=== PATIENT | male | born 1955 | race Caucasian/White ===

== ENCOUNTER 2017-07-18 11:16 | Emergency (ER) | payer BC ==
--- NOTE | 2017-07-18 12:42 | EDM.PDOC ---
ED HPI GENERAL MEDICAL PROBLEM - General Chief Complaint: General Stated Complaint: NUMBNESS IN FACE & ARM Time Seen by Provider: 07/18/17 12:00 Source of Information: Reports: Patient, Family History Limitations: Reports: No Limitations - History of Present Illness INITIAL COMMENTS - FREE TEXT/NARRATIVE: 61-year-old male with an aortic valve replacement history, previous TIAs who is his normal baseline last evening at midnight, woke up this morning at 10:00 and despite having no problem with ambulation realized he had paresthesias of his left face, left arm, and felt it was difficult to close his left eye. His family also thinks he has very slight dysarthria. He has no headache, visual complaints, nausea or vomiting, shortness of breath or chest pain. He is in a normal sinus rhythm. Glucose levels have been stable. Onset: Unknown/Unsure (Symptoms started sometime after midnight) Severity: Moderate Associated Symptoms: Denies: Confusion, Chest Pain, Cough, Fever/Chills, Headaches, Nausea/Vomiting, Shortness of Breath - Related Data Allergies Allergy/AdvReac Type Severity Reaction Status Date / Time No Known Allergies Allergy Verified 07/18/17 11:56 Home Meds: Home Meds Aspirin [Halfprin] 1 tab PO BEDTIME 07/18/17 [History] Fluticasone/Salmeterol [Advair 250-50 Diskus] 1 puff INH DAILY 07/18/17 [History ] Insulin Aspart [Novolog Flexpen] 1 unit SUBCUT ASDIRECTED 07/18/17 [History] Insulin Glarg,Human.Rec.Analog [Lantus Solostar] 40 unit SUBCUT DAILY 07/18/17 [ History] Lisinopril 1 tab PO DAILY 07/18/17 [History] Metoprolol Succinate [Toprol XL] 1 tab PO DAILY 07/18/17 [History] Montelukast [Singulair] 1 tab PO DAILY 07/18/17 [History] Ondansetron [Zofran ODT] 1 tab PO Q4H PRN 07/18/17 [History] Warfarin [Coumadin] 1 tab PO ASDIRECTED 07/18/17 [History] Warfarin [Coumadin] 15 mg PO ASDIRECTED 07/18/17 [History] atorvaSTATin Calcium [Atorvastatin Calcium] 1 tab PO DAILY 07/18/17 [History] Past Medical History HEENT History: Reports: Hard of Hearing, Impaired Vision Cardiovascular History: Reports: Hypertension Respiratory History: Reports: Asthma, Sleep Apnea, Other (See Below) Other Respiratory History: uses cpap Musculoskeletal History: Reports: Fracture Neurological History: Reports: TIA Endocrine/Metabolic History: Reports: Diabetes, Type I, Other (See Below) Other Endocrine/Metabolic History: Diabetic since 1981 Hematologic History: Reports: Anticoagulation Therapy - Past Surgical History HEENT Surgical History: Reports: Tonsillectomy Cardiovascular Surgical History: Reports: Valve Replacement, Other (See Below) Other Cardiovascular Surgeries/Procedures: aortic valve replacement GI Surgical History: Reports: Appendectomy Social & Family History - Tobacco Use Smoking Status *Q: Never Smoker - Alcohol Use Days Per Week of Alcohol Use: 2 Number of Drinks Per Day: 1 Total Drinks Per Week: 2 - Recreational Drug Use Recreational Drug Use: No ED ROS GENERAL - Review of Systems Review Of Systems: See Below Constitutional: Denies: Fever, Chills, Malaise HEENT: Reports: Other (Numbness of the left face, weakness of the osmani-orbital area and slight dysarthria) Respiratory: Denies: Shortness of Breath Cardiovascular: Denies: Chest Pain GI/Abdominal: Denies: Abdominal Pain Skin: Reports: No Symptoms Neurological: Reports: Paresthesia (face and left arm) Psychiatric: Reports: No Symptoms ED EXAM, GENERAL - Physical Exam Exam: See Below Exam Limited By: No Limitations General Appearance: Alert, No Apparent Distress Eye Exam: Bilateral Eye: EOMI, PERRL Head: Atraumatic Neck: Normal Inspection. No: Carotid Bruit Respiratory/Chest: No Respiratory Distress, Lungs Clear Cardiovascular: Regular Rate, Rhythm, Other (Valvular click is heard.) Neurological: Alert, Oriented, Other (Slight reproducible sensation deficit of the left face and extensor surface of the left arm. Grasp strength seems equal, lower extremity strength is equal. Patient however had noticeable lack of coordination with his left arm placing his right hearing aid in, he is normally left-handed) Skin Exam: Warm, Dry Course - Vital Signs Last Recorded V/S: Last Vital Signs Temp 97.4 F 07/18/17 11:52 Pulse 62 07/18/17 13:45 Resp 10 L 07/18/17 13:45 BP 148/73 H 07/18/17 13:45 Pulse Ox 95 07/18/17 13:45 - Orders/Labs/Meds Orders: Active Orders 24 hr Category Date Time Status Head wo Cont [CT] Stat Exams 07/18/17 12:19 Taken Labs: Laboratory Tests 07/18/17 07/18/17 07/18/17 Range/Units 12:29 12:29 12:29 WBC 6.3 (4.5-11.0) K/uL RBC 4.40 (4.30-5.90) M/uL Hgb 12.5 (12.0-15.0) g/dL Hct 38.5 L (40.0-54.0) % MCV 88 (80-98) fL MCH 28 (27-31) pg MCHC 33 (32-36) % Plt Count 222 (150-400) K/uL Neut % (Auto) 49 (36-66) % Lymph % (Auto) 40 (24-44) % [place] % (Auto) 9 H (2-6) % Eos % (Auto) 2 (2-4) % Baso % (Auto) 1 (0-1) % PT 34.8 H (9.5-12.0) sec INR 3.10 H (0.80-1.20) Sodium 145 (140-148) mmol/L Potassium 4.1 (3.6-5.2) mmol/L Chloride 110 H (100-108) mmol/L Carbon Dioxide 30 (21-32) mmol/L Anion Gap 9.1 (5.0-14.0) mmol/L BUN 14 (7-18) mg/dL Creatinine 0.9 (0.8-1.3) mg/dL Est Cr Clr Drug Dosing 84.44 mL/min Estimated GFR (MDRD) > 60 (>60) Glucose 102 (74-106) mg/dL Calcium 8.6 (8.5-10.1) mg/dL - Radiology Interpretation Free Text/Narrative:: This patient has very concerning symptoms for an insult to the right hemisphere of the brain. His symptoms are not worsening but not improving. A CT scan showed evidence of old infarcts but no acute findings or hemorrhage. His INR is 3.1, the rest of his labs are stable and reassuring. I discussed his condition with neurosurgery and neurology in [place], and they recommended nonemergent transfer for more evaluation. EMS we'll transfer the patient to [place] for additional imaging and evaluation by neurology. - Re-Assessments/Exams Free Text/Narrative Re-Assessment/Exam: 07/18/17 12:42 INR, CBC, BMP and CT scan of the head were obtained. Departure - Departure Time of Disposition: 14:09 Disposition: DC/Tfer to Other 70 Condition: Fair Clinical Impression: CVA, Cerebrovascular accident - Discharge Information Referrals: PCP,None [Primary Care Provider] - Forms: ED Department Discharge Care Plan Goals: Patient is to be transported to [facility] for further evaluation of stroke symptoms. - My Orders Last 24 Hours: My Active Orders 07/18/17 12:19 Head wo Cont [CT] Stat - Assessment/Plan Last 24 Hours: My Active Orders 07/18/17 12:19 Head wo Cont [CT] Stat
== END 2017-07-18 14:09 | disposition other institution (70) ==
LOC: JP.ED 11:16
DX: I63.9 Cerebral infarction, unspecified (principal); I10 Essential (primary) hypertension; J45.909 Unspecified asthma, uncomplicated; E10.9 Type 1 diabetes mellitus without complications; Z79.01 Long term (current) use of anticoagulants; Z79.899 Other long term (current) drug therapy; Z79.82 Long term (current) use of aspirin; Z95.4 Presence of other heart-valve replacement
CPT/HCPCS: 36415; 70450; 80048; 85025; 85610; 99285-25

== ENCOUNTER 2019-09-21 05:38 | Inpatient (IN) | payer BC ==
[2019-09-21] MEDS ORDERED: Sodium Chloride 0.9% 10 ML Syringe FLUSH PRN (06:22)
[2019-09-21] MEDS ORDERED: HYDROmorphone 0.5 MG/0.5 ML Syringe IVPUSH ONE ×2 (06:22→07:45)
--- NOTE | 2019-09-21 06:28 | EDM.PDOC ---
<Angel Olivia - Last Filed: 09/21/19 08:17> ED HPI GENERAL MEDICAL PROBLEM - General Chief Complaint: Abdominal Pain Stated Complaint: RIGHT SIDE ABD PAIN Time Seen by Provider: 09/21/19 06:15 Source of Information: Reports: Patient, Family History Limitations: Reports: No Limitations - History of Present Illness INITIAL COMMENTS - FREE TEXT/NARRATIVE: 64 yo male with pHx of appendectomy presents with RLQ abdominal pain that has been constant since about 0200h tonight. He has minimal nausea. No vomiting. Stooling is veronica. No pHx of kidney stones. No hx of this same type of pain. He took 2 Tums without relief. Here with his . Onset: Today Onset Date: 09/21/19 Onset Time: 02:00 Duration: Hour(s):, Constant Location: Reports: Abdomen (RLQ) Quality: Reports: Ache Severity: Moderate Improves with: Reports: None Worsens with: Reports: None Context: Reports: Other (unknown) Associated Symptoms: Reports: No Other Symptoms Treatments [employer]: Reports: Other (see below) (TUMS x 2) Right Lower Abdomen Pain Score (Numeric/FACES): 8 - Related Data Allergies Allergy/AdvReac Type Severity Reaction Status Date / Time No Known Allergies Allergy Verified 09/21/19 05:53 Home Meds: Home Meds Fluticasone/Salmeterol [Advair 250-50 Diskus] 1 puff INH DAILY 07/18/17 [History ] Insulin Aspart [Novolog Flexpen] 1 unit SUBCUT ASDIRECTED 07/18/17 [History] Insulin Glarg,Human.Rec.Analog [Lantus Solostar] 34 unit SUBCUT DAILY 07/18/17 [ History] Lisinopril 1 tab PO DAILY 07/18/17 [History] Metoprolol Succinate [Toprol XL] 1 tab PO DAILY 07/18/17 [History] Montelukast [Singulair] 1 tab PO DAILY 07/18/17 [History] Warfarin [Coumadin] 1 tab PO SUTUTHSA 07/18/17 [History] Warfarin [Coumadin] 15 mg PO MOWEFR 07/18/17 [History] atorvaSTATin Calcium [Atorvastatin Calcium] 1 tab PO DAILY 07/18/17 [History] Phytonadione [Vitamin K] 1 tab PO DAILY 09/21/19 [History] Past Medical History HEENT History: Reports: Hard of Hearing, Impaired Vision Cardiovascular History: Reports: Hypertension Respiratory History: Reports: Asthma, Sleep Apnea, Other (See Below) Other Respiratory History: uses cpap Gastrointestinal History: Reports: None Musculoskeletal History: Reports: Fracture Neurological History: Reports: TIA Endocrine/Metabolic History: Reports: Diabetes, Type I, Other (See Below) Other Endocrine/Metabolic History: Diabetic since 1981 Hematologic History: Reports: Anticoagulation Therapy - Past Surgical History HEENT Surgical History: Reports: Tonsillectomy Cardiovascular Surgical History: Reports: Valve Replacement, Other (See Below) Other Cardiovascular Surgeries/Procedures: aortic valve replacement Respiratory Surgical History: Reports: None GI Surgical History: Reports: Appendectomy Social & Family History - Tobacco Use Smoking Status *Q: Never Smoker - Caffeine Use Caffeine Use: Reports: Soda, Tea - Alcohol Use Days Per Week of Alcohol Use: 1 Number of Drinks Per Day: 3 Total Drinks Per Week: 3 - Recreational Drug Use Recreational Drug Use: No ED ROS GENERAL - Review of Systems Review Of Systems: See Below Constitutional: Reports: No Symptoms HEENT: Reports: No Symptoms Respiratory: Reports: No Symptoms Cardiovascular: Reports: No Symptoms GI/Abdominal: Reports: Abdominal Pain (RLQ), Nausea (minimal) : Reports: No Symptoms Musculoskeletal: Reports: No Symptoms Skin: Reports: No Symptoms Neurological: Reports: No Symptoms Psychiatric: Reports: No Symptoms ED EXAM, GI/ABD - Physical Exam Exam: See Below Exam Limited By: No Limitations General Appearance: Alert, WD/WN, No Apparent Distress Eyes: Bilateral: Normal Appearance Ears: Normal External Exam, Normal Canal, Hearing Loss, Other (hearing aids present) Nose: Normal Inspection, No Blood Throat/Mouth: Normal Inspection, Normal Lips, Normal Oropharynx, Normal Voice, No Airway Compromise Head: Atraumatic, Normocephalic Neck: Normal Inspection Respiratory/Chest: No Respiratory Distress, Lungs Clear, Normal Breath Sounds, No Accessory Muscle Use Cardiovascular: Regular Rate, Rhythm, No Edema GI/Abdominal Exam: Normal Bowel Sounds, Soft, No Distention, Tender (mild RLQ pain with deep palpation). No: Non-Tender, Distended, Guarding, Rigid, Rebound , Hernia Extremities: Normal Inspection, Normal Range of Motion, Non-Tender, No Pedal Edema Neurological: Alert, Oriented, CN II-XII Intact, Normal Cognition, No Motor/ Sensory Deficits Psychiatric: Normal Affect, Normal Mood Skin Exam: Warm, Dry, Intact, Normal Color, No Rash Course - Vital Signs Last Recorded V/S: Last Vital Signs Temp 36.0 C 09/21/19 05:49 Pulse 51 L 09/21/19 05:49 Resp 16 09/21/19 05:49 BP 188/75 H 09/21/19 05:49 Pulse Ox 97 09/21/19 05:49 - Orders/Labs/Meds Orders: Active Orders 24 hr Category Date Time Status Ampicillin/Sulbactam Na [Unasyn] 1.5 gm Med 09/21/19 09:38 Active Sodium Chloride 0.9% [Normal Saline] 50 ml IV ONETIME Aztreonam [Azactam] 1 gm Med 09/21/19 09:41 Active Sodium Chloride 0.9% [Normal Saline] 50 ml IV ONETIME Sodium Chloride 0.9% [Normal Saline] 1,000 ml Med 09/21/19 08:45 Active IV ASDIRECTED Sodium Chloride 0.9% [Normal Saline] 85 ml Med 09/21/19 07:30 Active IV ASDIRECTED Sodium Chloride 0.9% [Saline Flush] Med 09/21/19 06:22 Active 10 ml FLUSH ASDIRECTED PRN Saline Lock Insert [OM.PC] Routine Oth 09/21/19 06:22 Ordered Medication Orders Sodium Chloride (Normal Saline) 85 mls @ 3.5 mls/sec IV ASDIRECTED [facility] Last Admin: 09/21/19 07:49 Dose: 3.5 mls/sec Sodium Chloride (Normal Saline) 1,000 mls @ 999 mls/hr IV ASDIRECTED [facility] Last Admin: 09/21/19 08:49 Dose: 999 mls/hr Ampicillin Sodium/Sulbactam (Sodium 1.5 gm/ Sodium Chloride) 50 mls @ 100 mls/ hr IV ONETIME ONE Stop: 09/21/19 10:07 Aztreonam 1 gm/ Sodium (Chloride) 50 mls @ 100 mls/hr IV ONETIME ONE Stop: 09/21/19 10:10 Sodium Chloride (Saline Flush) 10 ml FLUSH ASDIRECTED PRN PRN Reason: Keep Vein Open Last Admin: 09/21/19 06:35 Dose: 10 ml Labs: Laboratory Tests 0109/21/19 09/21/19 Range/Units 06:23 06:40 06:40 WBC 10.3 (4.5-11.0) K/uL RBC 4.65 (4.30-5.90) M/uL Hgb 13.3 (12.0-15.0) g/dL Hct 40.2 (40.0-54.0) % MCV 87 (80-98) fL MCH 29 (27-31) pg MCHC 33 (32-36) % Plt Count 225 (150-400) K/uL PT (9.5-12.0) sec INR (0.80-1.20) Sodium 141 (140-148) mmol/L Potassium 4.1 (3.6-5.2) mmol/L Chloride 105 (100-108) mmol/L Carbon Dioxide 30 (21-32) mmol/L Anion Gap 6.1 (5.0-14.0) mmol/L BUN 13 (7-18) mg/dL Creatinine 1.1 (0.8-1.3) mg/dL Est Cr Clr Drug Dosing 66.50 mL/min Estimated GFR (MDRD) > 60 (>60) Glucose 202 H (74-106) mg/dL Calcium 8.2 L (8.5-10.1) mg/dL Total Bilirubin (0.2-1.0) mg/dL Direct Bilirubin (0.0-0.2) mg/dL Indirect Bilirubin AST (15-37) U/L ALT (12-78) U/L Alkaline Phosphatase (46-116) U/L C-Reactive Protein 0.64 H (0.0-0.3) mg/dL Total Protein (6.4-8.2) g/dL Albumin (3.4-5.0) g/dL Globulin (2.3-3.5) g/dL Albumin/Globulin Ratio (1.2-2.2) Lipase (73-393) U/L Urine Color Yellow (YELLOW) Urine Appearance Clear (CLEAR) Urine pH 6.5 (5.0-8.0) Ur Specific [place] >= 1.030 (1.008-1.030) Urine Protein >=300 H (NEGATIVE) mg/dL Urine Glucose (UA) 100 H (NEGATIVE) mg/dL Urine Ketones Negative (NEGATIVE) mg/dL Urine Occult Blood Moderate H (NEGATIVE) Urine Nitrite Negative (NEGATIVE) Urine Bilirubin Negative (NEGATIVE) Urine Urobilinogen 0.2 (0.2-1.0) EU/dL Ur Leukocyte Esterase Negative (NEGATIVE) Urine RBC 0-5 (0-5) Urine WBC 0-5 (0-5) Ur Epithelial Cells Few Amorphous Sediment Few Urine Bacteria Few Urine Mucus Not seen 09/21/19 09/21/19 09/21/19 Range/Units 08:19 08:22 08:26 WBC (4.5-11.0) K/uL RBC (4.30-5.90) M/uL Hgb (12.0-15.0) g/dL Hct (40.0-54.0) % MCV (80-98) fL MCH (27-31) pg MCHC (32-36) % Plt Count (150-400) K/uL PT 21.7 H (9.5-12.0) sec INR 2.10 H (0.80-1.20) Sodium (140-148) mmol/L Potassium (3.6-5.2) mmol/L Chloride (100-108) mmol/L Carbon Dioxide (21-32) mmol/L Anion Gap (5.0-14.0) mmol/L BUN (7-18) mg/dL Creatinine (0.8-1.3) mg/dL Est Cr Clr Drug Dosing mL/min Estimated GFR (MDRD) (>60) Glucose (74-106) mg/dL Calcium (8.5-10.1) mg/dL Total Bilirubin 0.5 (0.2-1.0) mg/dL Direct Bilirubin 0.09 (0.0-0.2) mg/dL Indirect Bilirubin TNP AST 28 (15-37) U/L ALT 30 (12-78) U/L Alkaline Phosphatase 89 (46-116) U/L C-Reactive Protein (0.0-0.3) mg/dL Total Protein 6.4 (6.4-8.2) g/dL Albumin 3.1 L (3.4-5.0) g/dL Globulin 3.3 (2.3-3.5) g/dL Albumin/Globulin Ratio 0.9 L (1.2-2.2) Lipase 294 (73-393) U/L Urine Color (YELLOW) Urine Appearance (CLEAR) Urine pH (5.0-8.0) Ur Specific [place] (1.008-1.030) Urine Protein (NEGATIVE) mg/dL Urine Glucose (UA) (NEGATIVE) mg/dL Urine Ketones (NEGATIVE) mg/dL Urine Occult Blood (NEGATIVE) Urine Nitrite (NEGATIVE) Urine Bilirubin (NEGATIVE) Urine Urobilinogen (0.2-1.0) EU/dL Ur Leukocyte Esterase (NEGATIVE) Urine RBC (0-5) Urine WBC (0-5) Ur Epithelial Cells Amorphous Sediment Urine Bacteria Urine Mucus Meds: Medications Generic Name Dose Route Start Last Admin Trade Name Freq PRN Reason Stop Dose Admin Sodium Chloride 85 mls @ 3.5 mls/sec 09/21/19 07:30 09/21/19 07:49 Normal Saline IV 3.5 mls/sec ASDIRECTED YOJANA Administration Sodium Chloride 1,000 mls @ 999 mls/hr 09/21/19 08:45 09/21/19 08:49 Normal Saline IV 999 mls/hr ASDIRECTED YOJANA Administration Ampicillin Sodium/Sulbactam 50 mls @ 100 mls/hr 09/21/19 09:38 Sodium 1.5 gm/ Sodium Chloride IV 09/21/19 10:07 ONETIME ONE Aztreonam 1 gm/ Sodium 50 mls @ 100 mls/hr 09/21/19 09:41 Chloride IV 09/21/19 10:10 ONETIME ONE Sodium Chloride 10 ml 09/21/19 06:22 09/21/19 06:35 Saline Flush FLUSH 10 ml ASDIRECTED PRN Administration Keep Vein Open Discontinued Medications Generic Name Dose Route Start Last Admin Trade Name Freq PRN Reason Stop Dose Admin Hydromorphone HCl 0.5 mg 09/21/19 06:22 09/21/19 06:35 Dilaudid IVPUSH 09/21/19 06:23 0.5 mg ONETIME ONE Administration Hydromorphone HCl 0.5 mg 09/21/19 07:45 09/21/19 07:51 Dilaudid IVPUSH 09/21/19 07:46 0.5 mg ONETIME ONE Administration Lactated Ringer's 1,000 mls @ 1,000 mls/hr 09/21/19 07:02 09/21/19 07:43 Ringers, Lactated IV 09/21/19 08:01 1,000 mls/hr BOLUS ONE Administration Iopamidol 150 ml 09/21/19 07:25 09/21/19 07:49 Isovue-300 (61%) IV 09/21/19 07:26 150 ml ONETIME ONE Administration - Radiology Interpretation Free Text/Narrative:: CT abd/pelvis with IV contrast- IMPRESSION: 1. Cholelithiasis with distended gallbladder and pericholecystic inflammatory changes; rule out acute cholecystitis; if clinically needed, suggest obtaining technetium Choletec hepato jonatan scintigraphy 2. No evidence of biliary duct dilatation. 3. Status post appendectomy. 4. No kidney stones or obstructive uropathy. Please note that all CT scans at this facility use dose modulation, iterative reconstruction, and/or weight-based dosing when appropriate to reduce radiation dose to as low as reasonably achievable. Dictated by Mia Chappell MD @ Sep 21 2019 8:11AM CT Results Date: 09/21/19 CT Results Time: 08:20 Departure - Departure Disposition: Admitted As Inpatient 67 Condition: Fair (c) Clinical Impression: Cholecystitis, Acute cholecystitis, Diabetes mellitus, History of Coumadin therapy - Discharge Information *PRESCRIPTION DRUG MONITORING PROGRAM REVIEWED*: No *COPY OF PRESCRIPTION DRUG MONITORING REPORT IN PATIENT BENNY: No Referrals: PCP,None [Primary Care Provider] - Forms: ED Department Discharge Care Plan Goals: admit to Dr English Sepsis Event Note - Evaluation Sepsis Screening Result: No Definite Risk - Focused Exam Vital Signs: Vital Signs Temp Pulse Resp BP Pulse Ox 09/21/19 05:49 36.0 C 51 L 16 188/75 H 97 Date Exam was Performed: 09/21/19 Time Exam was Performed: 08:17 - My Orders Last 24 Hours: My Active Orders 09/21/19 08:45 Sodium Chloride 0.9% [Normal Saline] 1,000 ml IV ASDIRECTED 09/21/19 09:38 Ampicillin/Sulbactam Na [Unasyn] 1.5 gm Sodium Chloride 0.9% [Normal Saline] 50 ml IV ONETIME 09/21/19 09:41 Aztreonam [Azactam] 1 gm Sodium Chloride 0.9% [Normal Saline] 50 ml IV ONETIME - Assessment/Plan Last 24 Hours: My Active Orders 09/21/19 08:45 Sodium Chloride 0.9% [Normal Saline] 1,000 ml IV ASDIRECTED 09/21/19 09:38 Ampicillin/Sulbactam Na [Unasyn] 1.5 gm Sodium Chloride 0.9% [Normal Saline] 50 ml IV ONETIME 09/21/19 09:41 Aztreonam [Azactam] 1 gm Sodium Chloride 0.9% [Normal Saline] 50 ml IV ONETIME <Janice Shukla - Last Filed: 09/21/19 09:45> Course - Re-Assessments/Exams Free Text/Narrative Re-Assessment/Exam: 09/21/19 09:36 pt was found to have normal liver enzymes and lipase. Dr Bush saw the pt and he wishes to have him admitted and he would plan to do surgery tomorrow. He will be started on antibiotics. 09/21/19 09:44 pt is on coumadin for valvular heart disease Departure - Departure Time of Disposition: 09:42 Sepsis Event Note - Focused Exam Date Exam was Performed: 09/21/19 Time Exam was Performed: 09:44
[2019-09-21] MEDS ORDERED: Lactated Ringers 1,000 ML IV ONE (07:02)
[2019-09-21] MEDS ORDERED: Iopamidol 500 ML BOTTLE IV ONE (07:25)
--- NOTE | 2019-09-21 08:17 | CRLCT ---
INDICATION: Right lower quadrant abdominal pain; status post appendectomy. COMPARISON: None. TECHNIQUE: CT abdomen and pelvis with intravenous contrast; coronal and sagittal reformats. FINDINGS: No abnormal intra pulmonary nodular densities through the lung bases. No evidence of pleural effusion. Normal size cardiac silhouette without any evidence of pericardial effusion. No focal hepatic or splenic pathology. No pancreatic pathology. Cholelithiasis. Mild distention of the gallbladder with minimal pericholecystic inflammatory changes; rule out acute cholecystitis. No evidence of biliary duct dilatation. No adrenal pathology. No kidney stones or obstructive uropathy. No retroperitoneal lymphadenopathy. No evidence of abdominal or pelvic ascites. No pneumoperitoneum or intestinal obstruction. Status post appendectomy. Splenic vein, superior mesenteric vein and the portal vein are unremarkable. IMPRESSION: 1. Cholelithiasis with distended gallbladder and pericholecystic inflammatory changes; rule out acute cholecystitis; if clinically needed, suggest obtaining technetium Choletec hepato jonatan scintigraphy 2. No evidence of biliary duct dilatation. 3. Status post appendectomy. 4. No kidney stones or obstructive uropathy. Please note that all CT scans at this facility use dose modulation, iterative reconstruction, and/or weight-based dosing when appropriate to reduce radiation dose to as low as reasonably achievable. Dictated by Mia Chpapell MD @ Sep 21 2019 8:11AM Signed by Dr. Mia Chappell @ Sep 21 2019 8:16AM
[2019-09-21] MEDS ORDERED: Sodium Chloride 0.9% 1,000 ML IV SCH ×2 (08:45→22:00)
[2019-09-21] MEDS ORDERED: Ampicillin/Sulbactam Na 1.5 GM in Sodium Chloride 0.9% 50 ML IV ONE (09:38)
--- NOTE | 2019-09-21 10:48 | PCM.HP.2 ---
H&P History of Present Illness - General Date of Service: 09/21/19 Admit Problem/Dx: Admission Diagnosis/Problem Admission Diagnosis/Problem Acute cholecystitis due to biliary calculus Source of Information: Patient, Family, Provider History Limitations: Reports: No Limitations - History of Present Illness Initial Comments - Free Text/Narative: CC: My belly hurts HPI: Omer presents to the emergency room this morning with right upper quadrant abdominal pain. He describes a sharp pain that woke him from sleep. The pain is located in the right upper quadrant and radiates throughout the right side of his abdomen. Pain is described as severe but is better after some pain medications. He did try some Tums at home without any relief. Because the pain did not improve and was so severe in nature he decided to seek treatment. He did not have associated nausea or vomiting but did report some diaphoresis. He has not had shortness of breath. No recent difficulties with dyspnea on exertion or chest pain. No prior episodes that were similar. No change in bowel or bladder habits. No measured fevers or shaking chills. He has had previous surgeries and has not had difficulty with anesthesia. His INR has been therapeutic for systemic anticoagulation with his mechanical heart valve. Diabetes has been well controlled. Work-up in the emergency room revealed fairly normal laboratory studies. A CT scan of the abdomen and pelvis revealed evidence for cholelithiasis and probable cholecystitis. Patient will be admitted for surgical management. Right Lower Abdomen Pain Score (Numeric/FACES): 8 - Related Data Allergies/Adverse Reactions: Allergies Allergy/AdvReac Type Severity Reaction Status Date / Time No Known Allergies Allergy Verified 09/21/19 05:53 Home Medications: Home Meds Fluticasone/Salmeterol [Advair 250-50 Diskus] 1 puff INH DAILY 07/18/17 [History ] Insulin Aspart [Novolog Flexpen] 1 unit SUBCUT ASDIRECTED 07/18/17 [History] Insulin Glarg,Human.Rec.Analog [Lantus Solostar] 34 unit SUBCUT DAILY 07/18/17 [ History] Lisinopril 1 tab PO DAILY 07/18/17 [History] Metoprolol Succinate [Toprol XL] 1 tab PO DAILY 07/18/17 [History] Montelukast [Singulair] 1 tab PO DAILY 07/18/17 [History] Warfarin [Coumadin] 1 tab PO SUTUTHSA 07/18/17 [History] Warfarin [Coumadin] 15 mg PO MOWEFR 07/18/17 [History] atorvaSTATin Calcium [Atorvastatin Calcium] 1 tab PO DAILY 07/18/17 [History] Phytonadione [Vitamin K] 1 tab PO DAILY 09/21/19 [History] Past Medical History HEENT History: Reports: Hard of Hearing, Impaired Vision Cardiovascular History: Reports: Hypertension Respiratory History: Reports: Asthma, Sleep Apnea, Other (See Below) Other Respiratory History: uses cpap Gastrointestinal History: Reports: None Musculoskeletal History: Reports: Fracture Neurological History: Reports: TIA Endocrine/Metabolic History: Reports: Diabetes, Type I, Other (See Below) Other Endocrine/Metabolic History: Diabetic since 1981 Hematologic History: Reports: Anticoagulation Therapy - Past Surgical History HEENT Surgical History: Reports: Tonsillectomy Cardiovascular Surgical History: Reports: Valve Replacement, Other (See Below) Other Cardiovascular Surgeries/Procedures: aortic valve replacement Respiratory Surgical History: Reports: None GI Surgical History: Reports: Appendectomy Social & Family History - Family History Cardiac: Reports: CAD (father in early 60's and brother in later 60's) - Tobacco Use Smoking Status *Q: Never Smoker - Caffeine Use Caffeine Use: Reports: Soda, Tea - Alcohol Use Days Per Week of Alcohol Use: 1 Number of Drinks Per Day: 3 Total Drinks Per Week: 3 - Recreational Drug Use Recreational Drug Use: No H&P Review of Systems - Review of Systems: Review Of Systems: See Below Free Text/Narrative: A complete 12 point review of systems was obtained. Pertinent positives and negatives are noted in the history of present illness. All other systems were reviewed and were negative except as noted. Exam - Exam Exam: See Below - Vital Signs Vital Signs: Last Vital Signs Temp 36.3 C 09/21/19 10:41 Pulse 56 L 09/21/19 10:41 Resp 20 09/21/19 10:41 BP 154/61 H 09/21/19 10:41 Pulse Ox 94 L 09/21/19 10:41 Weight: 109.4 kg - Exam Quality Assessment: No: Supplemental Oxygen General: Alert, Oriented, Cooperative. No: Mild Distress HEENT: Conjunctiva Clear, Mucosa Moist & [place]. No: Scleral Icterus Neck: Supple, Trachea Midline. No: Lymphadenopathy Lungs: Clear to Auscultation, Normal Respiratory Effort Cardiovascular: Regular Rate, Regular Rhythm, Other (crisp valve sounds). No: Systolic Murmur GI/Abdominal Exam: Normal Bowel Sounds, Soft, No Distention, Tender (moderate RUQ), Hernia (RLQ). No: Guarding Back Exam: Normal Inspection, Full Range of Motion Extremities: No Pedal Edema. No: Increased Warmth Peripheral Pulses: 2+: Dorsalis Pedis (L), Dorsalis Pedis (R) Skin: Warm, Dry Neuro Extensive - Mental Status: Alert, Oriented x3, Nl Response to Commands Neuro Extensive - Motor, Sensory, Reflexes: No: Dysarthria, Abnormal Motor, Tremor Psychiatric: Alert, Normal Affect - Patient Data Lab Results Last 24 hrs: Laboratory Results - last 24 hr 09/21/19 09/21/19 09/21/19 Range/Units 06:23 06:40 06:40 WBC 10.3 (4.5-11.0) K/uL RBC 4.65 (4.30-5.90) M/uL Hgb 13.3 (12.0-15.0) g/dL Hct 40.2 (40.0-54.0) % MCV 87 (80-98) fL MCH 29 (27-31) pg MCHC 33 (32-36) % Plt Count 225 (150-400) K/uL PT (9.5-12.0) sec INR (0.80-1.20) Sodium 141 (140-148) mmol/L Potassium 4.1 (3.6-5.2) mmol/L Chloride 105 (100-108) mmol/L Carbon Dioxide 30 (21-32) mmol/L Anion Gap 6.1 (5.0-14.0) mmol/L BUN 13 (7-18) mg/dL Creatinine 1.1 (0.8-1.3) mg/dL Est Cr Clr Drug Dosing 66.50 mL/min Estimated GFR (MDRD) > 60 (>60) Glucose 202 H (74-106) mg/dL Calcium 8.2 L (8.5-10.1) mg/dL Total Bilirubin (0.2-1.0) mg/dL Direct Bilirubin (0.0-0.2) mg/dL Indirect Bilirubin AST (15-37) U/L ALT (12-78) U/L Alkaline Phosphatase (46-116) U/L C-Reactive Protein 0.64 H (0.0-0.3) mg/dL Total Protein (6.4-8.2) g/dL Albumin (3.4-5.0) g/dL Globulin (2.3-3.5) g/dL Albumin/Globulin Ratio (1.2-2.2) Lipase (73-393) U/L Urine Color Yellow (YELLOW) Urine Appearance Clear (CLEAR) Urine pH 6.5 (5.0-8.0) Ur Specific [place] >= 1.030 (1.008-1.030) Urine Protein >=300 H (NEGATIVE) mg/dL Urine Glucose (UA) 100 H (NEGATIVE) mg/dL Urine Ketones Negative (NEGATIVE) mg/dL Urine Occult Blood Moderate H (NEGATIVE) Urine Nitrite Negative (NEGATIVE) Urine Bilirubin Negative (NEGATIVE) Urine Urobilinogen 0.2 (0.2-1.0) EU/dL Ur Leukocyte Esterase Negative (NEGATIVE) Urine RBC 0-5 (0-5) Urine WBC 0-5 (0-5) Ur Epithelial Cells Few Amorphous Sediment Few Urine Bacteria Few Urine Mucus Not seen 09/21/19 09/21/19 09/21/19 Range/Units 08:19 08:22 08:26 WBC (4.5-11.0) K/uL RBC (4.30-5.90) M/uL Hgb (12.0-15.0) g/dL Hct (40.0-54.0) % MCV (80-98) fL MCH (27-31) pg MCHC (32-36) % Plt Count (150-400) K/uL PT 21.7 H (9.5-12.0) sec INR 2.10 H (0.80-1.20) Sodium (140-148) mmol/L Potassium (3.6-5.2) mmol/L Chloride (100-108) mmol/L Carbon Dioxide (21-32) mmol/L Anion Gap (5.0-14.0) mmol/L BUN (7-18) mg/dL Creatinine (0.8-1.3) mg/dL Est Cr Clr Drug Dosing mL/min Estimated GFR (MDRD) (>60) Glucose (74-106) mg/dL Calcium (8.5-10.1) mg/dL Total Bilirubin 0.5 (0.2-1.0) mg/dL Direct Bilirubin 0.09 (0.0-0.2) mg/dL Indirect Bilirubin TNP AST 28 (15-37) U/L ALT 30 (12-78) U/L Alkaline Phosphatase 89 (46-116) U/L C-Reactive Protein (0.0-0.3) mg/dL Total Protein 6.4 (6.4-8.2) g/dL Albumin 3.1 L (3.4-5.0) g/dL Globulin 3.3 (2.3-3.5) g/dL Albumin/Globulin Ratio 0.9 L (1.2-2.2) Lipase 294 (73-393) U/L Urine Color (YELLOW) Urine Appearance (CLEAR) Urine pH (5.0-8.0) Ur Specific [place] (1.008-1.030) Urine Protein (NEGATIVE) mg/dL Urine Glucose (UA) (NEGATIVE) mg/dL Urine Ketones (NEGATIVE) mg/dL Urine Occult Blood (NEGATIVE) Urine Nitrite (NEGATIVE) Urine Bilirubin (NEGATIVE) Urine Urobilinogen (0.2-1.0) EU/dL Ur Leukocyte Esterase (NEGATIVE) Urine RBC (0-5) Urine WBC (0-5) Ur Epithelial Cells Amorphous Sediment Urine Bacteria Urine Mucus Result Diagrams: 09/21/19 06:40 09/21/19 06:40 Imaging Impressions Last 24 hrs: CT abd/pelvis - images personally reviewed - there is cholelithiasis with mild thickening of the GB wall c/w with cholecystitis. Biliary tree normal caliber. No other acute findings. Sepsis Event Note - Evaluation Sepsis Screening Result: No Definite Risk - Focused Exam Vital Signs: Vital Signs Temp Pulse Resp BP Pulse Ox 09/21/19 10:41 36.3 C 56 L 20 154/61 H 94 L 09/21/19 05:49 36.0 C 51 L 16 188/75 H 97 Date Exam was Performed: 09/21/19 Time Exam was Performed: 15:51 *Q Meaningful Use (ADM) - VTE *Q VTE Pharmacological Contraindications *Q: Patient Scheduled Surgery - VTE Risk Assess *Q Each Risk Factor Represents 1 Point: Obesity ( BMI > 25 kg/m2) Total Score 1 Point Risk Factors: 1 Each Risk Factor Represents 2 Points: Age 60 - 74 Years, Major surgery greater than 45 minutes Total Score 2 Point Risk Factors: 4 Each Risk Factor Represents 3 Points: None Total Score 3 Point Risk Factors: 0 Each Risk Factor Represents 5 Points: None Total Score 5 Point Risk Factors: 0 Venous Thromboembolism Risk Factor Score *Q: 5 - Problem List (1) Acute cholecystitis due to biliary calculus SNOMED Code(s): 43591148827322 ICD Code: K80.00 - CALCULUS OF GALLBLADDER W ACUTE CHOLECYST W/O OBSTRUCTION Status: Acute Current Visit: Yes (2) Aortic valve replaced Status: Chronic Current Visit: Yes (3) Type I diabetes mellitus SNOMED Code(s): 13188201 ICD Code: E10.9 - TYPE 1 DIABETES MELLITUS WITHOUT COMPLICATIONS Status: Chronic Current Visit: Yes Qualifiers: Diabetes mellitus complication status: without complication Qualified Code( s): E10.9 - Type 1 diabetes mellitus without complications Problem List Initiated/Reviewed/Updated: Yes Orders Last 24hrs: Active Orders 24 hr Category Date Time Status Patient Status Manage Transfer [TRANSFER] Routine ADT 09/21/19 10:34 Ordered Aztreonam [Azactam] 1 gm Med 09/21/19 10:30 Active Sodium Chloride 0.9% [Normal Saline] 50 ml IV ONETIME Sodium Chloride 0.9% [Normal Saline] 1,000 ml Med 09/21/19 08:45 Active IV ASDIRECTED Sodium Chloride 0.9% [Normal Saline] 85 ml Med 09/21/19 07:30 Active IV ASDIRECTED Sodium Chloride 0.9% [Saline Flush] Med 09/21/19 06:22 Active 10 ml FLUSH ASDIRECTED PRN Saline Lock Insert [OM.PC] Routine Oth 09/21/19 06:22 Ordered Resuscitation Status Routine Resus Stat 09/21/19 10:36 Ordered Medication Orders Sodium Chloride (Normal Saline) 85 mls @ 3.5 mls/sec IV ASDIRECTED YOJANA Last Admin: 09/21/19 07:49 Dose: 3.5 mls/sec Sodium Chloride (Normal Saline) 1,000 mls @ 999 mls/hr IV ASDIRECTED YOJANA Last Admin: 09/21/19 08:49 Dose: 999 mls/hr Aztreonam 1 gm/ Sodium (Chloride) 50 mls @ 100 mls/hr IV ONETIME ONE Stop: 09/21/19 10:59 Last Admin: 09/21/19 10:36 Dose: 100 mls/hr Sodium Chloride (Saline Flush) 10 ml FLUSH ASDIRECTED PRN PRN Reason: Keep Vein Open Last Admin: 09/21/19 06:35 Dose: 10 ml Assessment/Plan Comment:: ASSESSMENT AND PLAN - Acute cholecystitis with cholelithiasis-no evidence for biliary duct obstruction at this time and hepatic panel numbers are normal. No evidence for sepsis at this time. Patient has an acceptable functional status. No personal or family history of anesthesia difficulties. He is on warfarin for a mechanical heart valve and will need bridging up until the time of surgery. No obvious contraindications for cholecystectomy. -IV fluids overnight -Antibiotic coverage with Pip/Tazo -Blood cultures if he spikes a fever -Pain control -Surgical consultation for cholecystectomy with Dr. Bush -Anticoagulation management as below Status post mechanical aortic valve replacement-he is chronically anticoagulated with warfarin. Warfarin will need to be reversed. Because of the mechanical valve he will need to be bridged. -Heparin infusion overnight, stop 6 hours prior to surgery which is planned around 1330 tomorrow -1 mg of IV vitamin K today -INR in the morning -Restart warfarin and bridge with enoxaparin after surgery (1 mg/kd Q12H vs 1.5 mg/kg Q24H) Type 1 diabetes mellitus-planning to hold long-acting insulin today and tomorrow. Patient will be covered with mealtime and sliding scale insulin. Maintenance issues - - DVT prophylaxis -heparin infusion overnight - GI prophylaxis -not indicated - Nutrition -consistent carbohydrate today, nothing by mouth after midnight - Atkins catheter -not indicated CODE STATUS -full code Admission justification -this patient will be admitted for inpatient services and is medically appropriate meeting medical necessity for inpatient admission as outlined in my documentation. I reasonably expect the patient will require inpatient services that span a period time over 2 midnights. I reasonably expect this patient to be discharged or transferred within 96 hours [facility]. Disposition -I would anticipate discharge home after the hospital stay Primary care physician -Oli English M.D. - Mortality Measure Prognosis:: Good
[2019-09-21] MEDS ORDERED: Ondansetron 4 MG/2 ML SDV IV PRN (11:15)
[2019-09-21] MEDS ORDERED: Heparin Sodium/D5W 25,000 UNITS/500 ML BAG IV SCH (11:15)
[2019-09-21] MEDS ORDERED: Acetaminophen 325 MG Tab PO PRN (11:15)
[2019-09-21] MEDS ORDERED: Magnesium Hydroxide 400 MG/5 ML Susp 30 ML Cup PO PRN (11:15)
[2019-09-21] MEDS ORDERED: LORazepam 2 MG/ML SDV IVPUSH PRN (11:15)
[2019-09-21] MEDS ORDERED: Ondansetron 4 MG Tab.DIS PO PRN (11:15)
[2019-09-21] MEDS ORDERED: Albuterol 0.083% 2.5 MG/3 ML Neb Soln NEB PRN (11:15)
[2019-09-21] MEDS: HYDROmorphone 1 MG/ML Syringe IVPUSH PRN ×2 (11:56→16:15)
[2019-09-21] MEDS ORDERED: Phytonadione 1 MG in Sodium Chloride 0.9% 50 ML IV ONE (12:00)
[2019-09-21] MEDS ORDERED: Heparin Sodium 5,000 Units/ML Vial IVPUSH ONE (12:00)
[2019-09-21] MEDS: Insulin Lispro 100 Unit/ML 3 ML KwikPen SUBCUT SCH ×5 (12:22→21:04)
[2019-09-21] MEDS: Piperacillin/Tazobactam/Dext 3.375 GM in Premix Bag 1 BAG IV SCH ×2 (16:55→23:27)
[2019-09-21] MEDS: HYDROmorphone 0.5 MG/0.5 ML Syringe IVPUSH PRN ×2 (19:36→21:31)
[2019-09-21] MEDS: oxyCODONE 5 MG Tab PO PRN (19:37)
[2019-09-21] MEDS: Lactobacillus Rhamnosus GG (Probiotic) Cap PO SCH (21:34)
[2019-09-21] MEDS: Fluticasone-Salmeterol 113-14 MCG Powder Inhalant INH SCH (21:36)
[2019-09-22] MEDS: HYDROmorphone 0.5 MG/0.5 ML Syringe IVPUSH PRN ×4 (00:31→23:40)
[2019-09-22] MEDS: Piperacillin/Tazobactam/Dext 3.375 GM in Premix Bag 1 BAG IV SCH ×4 (04:30→21:42)
[2019-09-22] MEDS: Fluticasone-Salmeterol 113-14 MCG Powder Inhalant INH SCH ×2 (07:35→20:24)
[2019-09-22] MEDS ORDERED: Dexamethasone 4 MG/ML SDV ONE (08:34)
[2019-09-22] MEDS ORDERED: Propofol 200 MG/20 ML SDV ONE (08:34)
[2019-09-22] MEDS ORDERED: Succinylcholine 200 MG/10 ML MDV ONE (08:34)
[2019-09-22] MEDS ORDERED: Rocuronium 50 MG/5 ML Vial ONE (08:34)
[2019-09-22] MEDS ORDERED: Glycopyrrolate 0.2 MG/ML 5 ML MDV ONE (08:34)
[2019-09-22] MEDS ORDERED: fentaNYL 250 MCG/5 ML SDV ONE ×2 (08:34→14:22)
[2019-09-22] MEDS ORDERED: Neostigmine Methylsulfate 1 MG/ML 5 ML Syringe ONE (08:34)
[2019-09-22] MEDS ORDERED: Ondansetron 4 MG/2 ML SDV ONE (08:34)
[2019-09-22] MEDS: Insulin Lispro 100 Unit/ML 3 ML KwikPen SUBCUT SCH ×7 (08:42→20:30)
[2019-09-22] MEDS: Metoprolol Succinate 25 MG Tab.ER PO SCH (08:44)
[2019-09-22] MEDS: Lactobacillus Rhamnosus GG (Probiotic) Cap PO SCH ×2 (08:45→20:24)
[2019-09-22] MEDS ORDERED: Dextrose 5%-Lactated Ringers 1,000 ML IV SCH ×2 (08:45→16:30)
[2019-09-22] MEDS: Montelukast 10 MG Tab PO SCH (08:46)
[2019-09-22] MEDS: atorvaSTATin 20 MG Tab PO SCH (08:46)
[2019-09-22] MEDS: Lisinopril 20 MG Tab PO SCH (08:47)
--- NOTE | 2019-09-22 09:48 | PCM.PN ---
- General Info Date of Service: 09/22/19 Subjective Update: There were no acute events overnight following admission. Patient did not have any fevers. He has ongoing abdominal pain which has been fairly well controlled. He has not had any nausea or vomiting. He did require some supplemental oxygen overnight. He is a little bit groggy this morning. Surgery planned later in the afternoon. Bilirubin and white blood cell count are both slightly higher today. Functional Status: Reports: Pain Controlled - Review of Systems General: Denies: Fever Gastrointestinal: Reports: Abdominal Pain - Patient Data Vitals - Most Recent: Last Vital Signs Temp 37.1 C 09/22/19 08:00 Pulse 72 09/22/19 08:00 Resp 18 09/22/19 08:00 BP 166/70 H 09/22/19 08:00 Pulse Ox 93 L 09/22/19 08:00 Weight - Most Recent: 109.4 kg I&O - Last 24 Hours: Intake & Output 09/21/19 09/22/19 09/22/19 22:59 06:59 14:59 Intake Total 480 784 Output Total 250 325 350 Balance 230 459 -350 Lab Results Last 24 Hours: Laboratory Results - last 24 hr 09/21/19 09/21/19 09/22/19 Range/Units 11:15 19:30 02:35 WBC 14.5 H (4.5-11.0) K/uL RBC 4.68 (4.30-5.90) M/uL Hgb 13.4 (12.0-15.0) g/dL Hct 40.3 (40.0-54.0) % MCV 86 (80-98) fL MCH 29 (27-31) pg MCHC 33 (32-36) % Plt Count 214 (150-400) K/uL PT (9.5-12.0) sec INR (0.80-1.20) APTT 34.7 75.2 H (27.0-36.0) sec Sodium (140-148) mmol/L Potassium (3.6-5.2) mmol/L Chloride (100-108) mmol/L Carbon Dioxide (21-32) mmol/L Anion Gap (5.0-14.0) mmol/L BUN (7-18) mg/dL Creatinine (0.8-1.3) mg/dL Est Cr Clr Drug Dosing mL/min Estimated GFR (MDRD) (>60) Glucose (74-106) mg/dL Calcium (8.5-10.1) mg/dL Total Bilirubin (0.2-1.0) mg/dL AST (15-37) U/L ALT (12-78) U/L Alkaline Phosphatase (46-116) U/L Total Protein (6.4-8.2) g/dL Albumin (3.4-5.0) g/dL Globulin (2.3-3.5) g/dL Albumin/Globulin Ratio (1.2-2.2) 09/22/19 09/22/19 09/22/19 Range/Units 02:35 02:35 02:35 WBC (4.5-11.0) K/uL RBC (4.30-5.90) M/uL Hgb (12.0-15.0) g/dL Hct (40.0-54.0) % MCV (80-98) fL MCH (27-31) pg MCHC (32-36) % Plt Count (150-400) K/uL PT 14.7 H (9.5-12.0) sec INR 1.39 H (0.80-1.20) APTT 51.1 H (27.0-36.0) sec Sodium 138 L (140-148) mmol/L Potassium 4.3 (3.6-5.2) mmol/L Chloride 103 (100-108) mmol/L Carbon Dioxide 29 (21-32) mmol/L Anion Gap 10.3 (5.0-14.0) mmol/L BUN 13 (7-18) mg/dL Creatinine 1.1 (0.8-1.3) mg/dL Est Cr Clr Drug Dosing 66.50 mL/min Estimated GFR (MDRD) > 60 (>60) Glucose 227 H (74-106) mg/dL Calcium 8.0 L (8.5-10.1) mg/dL Total Bilirubin 2.0 H D (0.2-1.0) mg/dL AST 20 (15-37) U/L ALT 23 (12-78) U/L Alkaline Phosphatase 89 (46-116) U/L Total Protein 6.1 L (6.4-8.2) g/dL Albumin 2.7 L (3.4-5.0) g/dL Globulin 3.4 (2.3-3.5) g/dL Albumin/Globulin Ratio 0.8 L (1.2-2.2) Med Orders - Current: Current Medications Acetaminophen (Tylenol) 650 mg PO Q4H PRN PRN Reason: Pain (Mild 1-3)/fever Albuterol (Proventil Neb Soln) 2.5 mg NEB Q4H PRN PRN Reason: Shortness Of Breath/wheezing Atorvastatin Calcium (Lipitor) 80 mg PO DAILY [facility] Last Admin: 09/22/19 08:46 Dose: Not Given Ropivacaine 54 ml/Dexamethasone 8 mg/Epinephrine HCl 0.4 mg/ Sodium Chloride 23.6 ml 0 ml NERVRT ASDIRECTED [facility] Hydromorphone HCl (Dilaudid) 0.5 mg IVPUSH Q2H PRN PRN Reason: Pain (severe 7-10) Last Admin: 09/22/19 02:35 Dose: 0.5 mg Piperacillin/Tazobactam/ (Dextrose 3.375 gm/ Premix) 50 mls @ 100 mls/hr IV Q6H [facility] Last Admin: 09/22/19 09:14 Dose: 100 mls/hr Dextrose/Lactated Ringer's (Dextrose 5%-Lactated Ringers) 1,000 mls @ 75 mls/ hr IV ASDIRECTED [facility] Last Admin: 09/22/19 09:01 Dose: 75 mls/hr Insulin Glargine (Lantus Solostar) 34 units SUBCUT DAILY [facility] Insulin Human Lispro (Humalog) 0 unit SUBCUT QIDACANDBED [facility]; Protocol Last Admin: 09/22/19 08:42 Dose: 4 units Insulin Human Lispro (Humalog) 5 unit SUBCUT TIDMEALS [facility] Last Admin: 09/22/19 08:44 Dose: Not Given Lactobacillus Rhamnosus (Culturelle) 1 cap PO BID [facility] Last Admin: 09/22/19 08:45 Dose: Not Given Lisinopril (Prinivil) 20 mg PO DAILY [facility] Last Admin: 09/22/19 08:47 Dose: Not Given Lorazepam (Ativan) 0.5 mg IVPUSH Q4H PRN PRN Reason: Nausea/Vomiting Magnesium Hydroxide (Milk Of Magnesia) 30 ml PO Q12H PRN PRN Reason: Constipation Metoprolol Succinate (Toprol Xl) 25 mg PO DAILY [facility] Last Admin: 09/22/19 08:44 Dose: Not Given Montelukast Sodium (Singulair) 10 mg PO DAILY [facility] Last Admin: 09/22/19 08:46 Dose: Not Given Ondansetron HCl (Zofran Odt) 4 mg PO Q6H PRN PRN Reason: Nausea able to take PO Ondansetron HCl (Zofran) 4 mg IV Q6H PRN PRN Reason: Nausea/Vomiting Last Admin: 09/22/19 00:33 Dose: 4 mg Oxycodone HCl (Oxycodone) 5 - 10 mg PO Q4H PRN PRN Reason: Pain Last Admin: 09/21/19 19:37 Dose: 5 mg Fluticasone/Salmeterol (Fluticasone-Salmeterol 113-14 Mcg Powder Inh) 0 puff INH BIDRT [facility] Last Admin: 09/22/19 07:35 Dose: 1 puff Senna/Docusate Sodium (Senna Plus) 1 tab PO BID PRN PRN Reason: Constipation Sodium Chloride (Saline Flush) 10 ml FLUSH ASDIRECTED PRN PRN Reason: Keep Vein Open Last Admin: 09/21/19 06:35 Dose: 10 ml Discontinued Medications Dexamethasone (Dexamethasone) Confirm Administered Dose 4 mg .ROUTE .STK-MED ONE Stop: 09/22/19 08:35 Fentanyl (Sublimaze) Confirm Administered Dose 250 mcg .ROUTE .STK-MED ONE Stop: 09/22/19 08:35 Glycopyrrolate (Robinul) Confirm Administered Dose 1 mg .ROUTE .STK-MED ONE Stop: 09/22/19 08:35 Heparin Sodium (Porcine) (Heparin Sodium) 5,000 units IVPUSH .BOLUS ONE Stop: 09/21/19 12:01 Last Admin: 09/21/19 13:08 Dose: 5,000 units Hydromorphone HCl (Dilaudid) 0.5 mg IVPUSH ONETIME ONE Stop: 09/21/19 06:23 Last Admin: 09/21/19 06:35 Dose: 0.5 mg Hydromorphone HCl (Dilaudid) 0.5 mg IVPUSH ONETIME ONE Stop: 09/21/19 07:46 Last Admin: 09/21/19 07:51 Dose: 0.5 mg Hydromorphone HCl (Dilaudid) 0.5 mg IVPUSH Q2H PRN PRN Reason: Pain (severe 7-10) Last Admin: 09/21/19 16:15 Dose: 0.5 mg Lactated Ringer's (Ringers, Lactated) 1,000 mls @ 1,000 mls/hr IV BOLUS ONE Stop: 09/21/19 08:01 Last Admin: 09/21/19 07:43 Dose: 1,000 mls/hr Sodium Chloride (Normal Saline) 85 mls @ 3.5 mls/sec IV ASDIRECTED [facility] Last Admin: 09/21/19 07:49 Dose: 3.5 mls/sec Sodium Chloride (Normal Saline) 1,000 mls @ 999 mls/hr IV ASDIRECTED [facility] Last Admin: 09/21/19 08:49 Dose: 999 mls/hr Ampicillin Sodium/Sulbactam (Sodium 1.5 gm/ Sodium Chloride) 50 mls @ 100 mls/ hr IV ONETIME ONE Stop: 09/21/19 10:07 Last Admin: 09/21/19 09:54 Dose: 100 mls/hr Aztreonam 1 gm/ Sodium (Chloride) 50 mls @ 100 mls/hr IV ONETIME ONE Stop: 09/21/19 10:59 Last Admin: 09/21/19 10:36 Dose: 100 mls/hr Heparin Sodium/Dextrose (Heparin 25,000 Units In D5w 500 Ml) 25,000 units in 500 mls @ 39.384 mls/hr IV TITRATE [facility]; Protocol Stop: 09/22/19 07:30 Last Titration: 09/21/19 20:27 Dose: 9.9 units/kg/hr, 21.661 mls/hr Phytonadione 1 mg/ Sodium (Chloride) 50.5 mls @ 100 mls/hr IV ONETIME ONE Stop: 09/21/19 12:30 Last Admin: 09/21/19 12:16 Dose: 100 mls/hr Sodium Chloride (Normal Saline) 1,000 mls @ 75 mls/hr IV ASDIRECTED [facility] Iopamidol (Isovue-300 (61%)) 150 ml IV ONETIME ONE Stop: 09/21/19 07:26 Last Admin: 09/21/19 07:49 Dose: 150 ml Neostigmine Methylsulfate (Neostigmine) Confirm Administered Dose 5 mg .ROUTE .STK-MED ONE Stop: 09/22/19 08:35 Ondansetron HCl (Zofran) Confirm Administered Dose 4 mg .ROUTE .STK-MED ONE Stop: 09/22/19 08:35 Propofol (Diprivan 20 Ml) Confirm Administered Dose 200 mg .ROUTE .STK-MED ONE Stop: 09/22/19 08:35 Rocuronium [place] (Zemuron) Confirm Administered Dose 50 mg .ROUTE .STK-MED ONE Stop: 09/22/19 08:35 Succinylcholine Chloride (Quelicin) Confirm Administered Dose 200 mg .ROUTE .STSphereUp -MED ONE Stop: 09/22/19 08:35 - Exam Quality Assessment: Supplemental Oxygen General: Alert, Oriented, Cooperative, No Acute Distress Lungs: Normal Respiratory Effort Cardiovascular: Regular Rate, Regular Rhythm GI/Abdominal Exam: Soft, No Distention Extremities: No Pedal Edema Psy/Mental Status: Alert, Normal Affect Sepsis Event Note - Evaluation Sepsis Screening Result: No Definite Risk - Focused Exam Vital Signs: Vital Signs Temp Pulse Resp BP Pulse Ox Pulse Ox 09/22/19 08:00 37.1 C 72 18 166/70 H 93 L 09/22/19 07:35 78 95 09/22/19 04:00 36.7 C 74 16 94 L 09/22/19 00:00 36.9 C 20 170/67 H 96 Date Exam was Performed: 09/22/19 Time Exam was Performed: 13:39 - Problem List & Annotations (1) Acute cholecystitis due to biliary calculus SNOMED Code(s): 56819093528945 Code(s): K80.00 - CALCULUS OF GALLBLADDER W ACUTE CHOLECYST W/O OBSTRUCTION Status: Acute Current Visit: Yes (2) Aortic valve replaced Status: Chronic Current Visit: Yes (3) Type I diabetes mellitus SNOMED Code(s): 77637910 Code(s): E10.9 - TYPE 1 DIABETES MELLITUS WITHOUT COMPLICATIONS Status: Chronic Current Visit: Yes Qualifiers: Diabetes mellitus complication status: without complication Qualified Code( s): E10.9 - Type 1 diabetes mellitus without complications - Problem List Review Problem List Initiated/Reviewed/Updated: Yes - My Orders Last 24 Hours: My Active Orders 09/21/19 10:36 Resuscitation Status Routine 09/21/19 11:15 Patient Status [ADT] Routine Communication Order [RC] PRN Communication Order [RC] PRN Communication Order [RC] ROUTINE Diabetes Education [RC] Click to Edit Intake and Output [RC] QSHIFT Notify Provider Consults [RC] ASDIRECTED Notify Provider Vital Signs [RC] ASDIRECTED Notify Provider [RC] PRN Oxygen Therapy [RC] PRN RT Aerosol Therapy [RC] ASDIRECTED Up ad Danielle [RC] ASDIRECTED VTE/DVT Education [RC] Per Unit Routine Vital Signs [RC] Q4H Consult to Physician [CONS] Routine Acetaminophen [Tylenol] 650 mg PO Q4H PRN Albuterol [Proventil Neb Soln] 2.5 mg NEB Q4H PRN Docusate Sodium/Sennosides [Senna Plus] 1 tab PO BID PRN Insulin Lispro [HumaLOG] See Protocol SUBCUT QIDACANDBED LORazepam [Ativan] 0.5 mg IVPUSH Q4H PRN Magnesium Hydroxide [Milk of Magnesia] 30 ml PO Q12H PRN Ondansetron [Zofran ODT] 4 mg PO Q6H PRN Ondansetron [Zofran] 4 mg IV Q6H PRN oxyCODONE 5 - 10 mg PO Q4H PRN 09/21/19 12:00 Insulin Lispro [HumaLOG] 5 unit SUBCUT TIDMEALS 09/21/19 16:00 Piperacillin/Tazobactam/Dext [Zosyn in Dextrose Iso-Osmotic 3.375 GM] 3.375 gm Premix Bag 1 bag IV Q6H 09/21/19 16:10 HYDROmorphone [Dilaudid] 0.5 mg IVPUSH Q2H PRN 09/21/19 18:43 CPAP Noctural Home [RT BiPAP/CPAP] [RC] ASDIRECTED 09/21/19 21:00 Fluticasone/Salmeterol [Fluticasone-Salmeterol 113-14 MCG Powder Inh] 0 puff INH BIDRT Lactobacillus Rhamnosus GG [Culturelle] 1 cap PO BID 09/21/19 Dinner Nothing per Oral After Midnight Diet [DIET] 09/22/19 09:00 Metoprolol Succinate [Toprol XL] 25 mg PO DAILY Montelukast [Singulair] 10 mg PO DAILY atorvaSTATin [Lipitor] 80 mg PO DAILY lisinopriL [Prinivil] 20 mg PO DAILY 09/23/19 05:00 CBC W/O DIFF,HEMOGRAM [HEME] Timed (1) COMPREHENSIVE METABOLIC PN,CMP [CHEM] Timed 09/23/19 07:30 GLUCOSE POC LAB TO COLLECT [POC] QIDACANDBED 09/23/19 09:00 Insulin Glarg,Human.Rec.Analog [LantUS Solostar] 34 units SUBCUT DAILY 09/23/19 11:30 GLUCOSE POC LAB TO COLLECT [POC] QIDACANDBED 09/23/19 16:30 GLUCOSE POC LAB TO COLLECT [POC] QIDACANDBED 09/23/19 21:00 GLUCOSE POC LAB TO COLLECT [POC] QIDACANDBED 09/24/19 07:30 GLUCOSE POC LAB TO COLLECT [POC] QIDACANDBED 09/24/19 11:30 GLUCOSE POC LAB TO COLLECT [POC] QIDACANDBED 09/24/19 16:30 GLUCOSE POC LAB TO COLLECT [POC] QIDACANDBED 09/24/19 21:00 GLUCOSE POC LAB TO COLLECT [POC] QIDACANDBED 09/25/19 07:30 GLUCOSE POC LAB TO COLLECT [POC] QIDACANDBED 09/25/19 11:30 GLUCOSE POC LAB TO COLLECT [POC] QIDACANDBED 09/25/19 16:30 GLUCOSE POC LAB TO COLLECT [POC] QIDACANDBED 09/25/19 21:00 GLUCOSE POC LAB TO COLLECT [POC] QIDACANDBED 09/26/19 07:30 GLUCOSE POC LAB TO COLLECT [POC] QIDACANDBED 09/26/19 11:30 GLUCOSE POC LAB TO COLLECT [POC] QIDACANDBED 09/26/19 16:30 GLUCOSE POC LAB TO COLLECT [POC] QIDACANDBED - Plan Plan:: ASSESSMENT AND PLAN - Acute cholecystitis with cholelithiasis-no evidence for biliary duct obstruction at this time. Bilirubin slightly higher. Ongoing pain. No fevers. -Continue IV fluids -Antibiotic coverage with Pip/Tazo -Blood cultures if he spikes a fever -Pain control -Surgical consultation for cholecystectomy with Dr. Bush later today -Anticoagulation management as below Status post mechanical aortic valve replacement-he is chronically anticoagulated with warfarin. Warfarin was reversed. Because of the mechanical valve he will need to be bridged. -Heparin infusion stopped this morning -INR in the morning -Restart warfarin and bridge with enoxaparin after as soon as it is safe ( tomorrow?) surgery (1 mg/kd Q12H vs 1.5 mg/kg Q24H) Type 1 diabetes mellitus-planning to hold long-acting insulin today. Patient will be covered with mealtime and sliding scale insulin. -Restart long-acting insulin tomorrow -Continue sliding scale insulin Maintenance issues - - DVT prophylaxis -mechanical overnight, hope to restart systemic anticoagulation tomorrow - GI prophylaxis -not indicated - Nutrition -nothing by mouth until after surgery - Atkins catheter -not indicated Disposition -I would anticipate discharge home after the hospital stay Primary care physician -Oli English M.D.
[2019-09-22] MEDS ORDERED: Bupivacaine 0.5%/EPINEPHrine 1:200,000 50 ML MDV ONE (12:00)
[2019-09-22] MEDS ORDERED: Labetalol 20 MG/4 ML Syringe ONE (14:25)
[2019-09-22] MEDS ORDERED: Lactated Ringers 1,000 ML ONE (14:41)
[2019-09-22] MEDS ORDERED: Albuterol/Ipratropium 3.0-0.5 MG/3 ML Neb Soln INH PRN (16:17)
[2019-09-22] MEDS ORDERED: Lactated Ringers 1,000 ML IV SCH (16:30)
[2019-09-22] MEDS: Heparin Sodium/D5W 25,000 UNITS/500 ML BAG IV SCH (17:03)
[2019-09-22] MEDS: HYDROmorphone 1 MG/ML Syringe IV PRN ×2 (18:44→21:42)
[2019-09-22] MEDS: Albuterol/Ipratropium 3.0-0.5 MG/3 ML Neb Soln INH SCH (20:24)
[2019-09-23] MEDS: Piperacillin/Tazobactam/Dext 3.375 GM in Premix Bag 1 BAG IV SCH (04:18)
[2019-09-23] MEDS ORDERED: Insulin Lispro 100 Units/ML 3 ML Vial SUBCUT ONE (05:33)
[2019-09-23] MEDS: Insulin Glargine,Human Rec. Analog 100 Units/ML 3 ML Pen SUBCUT SCH ×2 (06:28→09:48)
[2019-09-23] MEDS: Fluticasone-Salmeterol 113-14 MCG Powder Inhalant INH SCH ×2 (07:09→20:34)
[2019-09-23] MEDS: Albuterol/Ipratropium 3.0-0.5 MG/3 ML Neb Soln INH SCH ×4 (07:09→20:38)
[2019-09-23] MEDS ORDERED: Lactated Ringers 1,000 ML IV SCH ×2 (07:30→09:45)
[2019-09-23] MEDS ORDERED: Insulin Lispro 100 Unit/ML 3 ML KwikPen SUBCUT ONE ×2 (09:16→11:21)
[2019-09-23] MEDS: Docusate Sodium 100 MG Cap PO SCH ×2 (09:17→20:33)
[2019-09-23] MEDS: Lactobacillus Rhamnosus GG (Probiotic) Cap PO SCH ×2 (09:18→20:33)
[2019-09-23] MEDS: Bisacodyl 5 MG Tab PO SCH ×2 (09:18→20:34)
[2019-09-23] MEDS: atorvaSTATin 20 MG Tab PO SCH (09:19)
[2019-09-23] MEDS: Metoprolol Succinate 25 MG Tab.ER PO SCH (09:20)
[2019-09-23] MEDS: Montelukast 10 MG Tab PO SCH (09:20)
[2019-09-23] MEDS: Lisinopril 20 MG Tab PO SCH (09:23)
[2019-09-23] MEDS: Insulin Lispro 100 Unit/ML 3 ML KwikPen SUBCUT SCH ×7 (09:27→21:29)
[2019-09-23] MEDS: Magnesium Sulfate/Water 2 GM in Premix Bag 1 BAG IV SCH ×3 (10:12→21:30)
--- NOTE | 2019-09-23 11:49 | PCM.PN ---
- General Info Date of Service: 09/23/19 Subjective Update: The patient had a laparoscopic cholecystectomy as well as drainage of some osmani- cholecystic fluid yesterday and additionally had resection of some fibrinous material adherent to surrounding tissue. Pain has been well controlled since surgery. He has not had any fevers. He did require supplemental oxygen temporarily overnight. Creatinine is somewhat higher today compared to yesterday. Urine output has been good. Cultures obtained during surgery yesterday are negative so far. He does have moderate drainage from his TYRONE site. Functional Status: Reports: Pain Controlled, Tolerating Diet - Review of Systems General: Denies: Fever Gastrointestinal: Reports: Abdominal Pain - Patient Data Vitals - Most Recent: Last Vital Signs Temp 36.9 C 09/23/19 10:49 Pulse 82 09/23/19 11:00 Resp 18 09/23/19 10:49 BP 127/53 L 09/23/19 10:49 Pulse Ox 94 L 09/23/19 10:49 Weight - Most Recent: 109.4 kg I&O - Last 24 Hours: Intake & Output 09/22/19 09/23/19 09/23/19 22:59 06:59 14:59 Intake Total 1350 1960 Output Total 287 773 40 Balance 1063 1187 -40 Lab Results Last 24 Hours: Laboratory Results - last 24 hr 09/23/19 09/23/19 09/23/19 Range/Units 04:45 04:45 04:45 WBC 16.8 H (4.5-11.0) K/uL RBC 4.35 (4.30-5.90) M/uL Hgb 12.5 (12.0-15.0) g/dL Hct 38.1 L (40.0-54.0) % MCV 88 (80-98) fL MCH 29 (27-31) pg MCHC 33 (32-36) % Plt Count 205 (150-400) K/uL APTT 48.6 H (27.0-36.0) sec Sodium 134 L (140-148) mmol/L Potassium 4.5 (3.6-5.2) mmol/L Chloride 99 L (100-108) mmol/L Carbon Dioxide 24 (21-32) mmol/L Anion Gap 15.5 H (5.0-14.0) mmol/L BUN 20 H D (7-18) mg/dL Creatinine 1.7 H D (0.8-1.3) mg/dL Est Cr Clr Drug Dosing 43.19 mL/min Estimated GFR (MDRD) 41 L (>60) Glucose 476 H* (74-106) mg/dL Calcium 8.0 L (8.5-10.1) mg/dL Phosphorus 2.7 (2.5-4.9) mg/dL Magnesium 1.6 L (1.8-2.4) mg/dL Total Bilirubin 1.5 H (0.2-1.0) mg/dL AST 46 H D (15-37) U/L ALT 47 D (12-78) U/L Alkaline Phosphatase 78 (46-116) U/L NT-Pro-B Natriuret Pep 896 H (5-125) pg/mL Total Protein 5.8 L (6.4-8.2) g/dL Albumin 2.3 L (3.4-5.0) g/dL Globulin 3.5 (2.3-3.5) g/dL Albumin/Globulin Ratio 0.7 L (1.2-2.2) 09/23/19 Range/Units 10:00 WBC (4.5-11.0) K/uL RBC (4.30-5.90) M/uL Hgb (12.0-15.0) g/dL Hct (40.0-54.0) % MCV (80-98) fL MCH (27-31) pg MCHC (32-36) % Plt Count (150-400) K/uL APTT 53.1 H (27.0-36.0) sec Sodium (140-148) mmol/L Potassium (3.6-5.2) mmol/L Chloride (100-108) mmol/L Carbon Dioxide (21-32) mmol/L Anion Gap (5.0-14.0) mmol/L BUN (7-18) mg/dL Creatinine (0.8-1.3) mg/dL Est Cr Clr Drug Dosing mL/min Estimated GFR (MDRD) (>60) Glucose (74-106) mg/dL Calcium (8.5-10.1) mg/dL Phosphorus (2.5-4.9) mg/dL Magnesium (1.8-2.4) mg/dL Total Bilirubin (0.2-1.0) mg/dL AST (15-37) U/L ALT (12-78) U/L Alkaline Phosphatase (46-116) U/L NT-Pro-B Natriuret Pep (5-125) pg/mL Total Protein (6.4-8.2) g/dL Albumin (3.4-5.0) g/dL Globulin (2.3-3.5) g/dL Albumin/Globulin Ratio (1.2-2.2) Norm Results Last 24 Hours: Microbiology 09/22/19 14:41 Gram Stain - Final Gallbladder Med Orders - Current: Current Medications Acetaminophen (Tylenol) 650 mg PO Q4H PRN PRN Reason: Pain (Mild 1-3)/fever Albuterol (Proventil Neb Soln) 2.5 mg NEB Q4H PRN PRN Reason: Shortness Of Breath/wheezing Albuterol/Ipratropium (Duoneb 3.0-0.5 Mg/3 Ml) 3 ml INH QIDRT [facility] Last Admin: 09/23/19 10:57 Dose: 3 ml Albuterol/Ipratropium (Duoneb 3.0-0.5 Mg/3 Ml) 3 ml INH ASDIRECTED PRN PRN Reason: BREATHING Atorvastatin Calcium (Lipitor) 80 mg PO DAILY [facility] Last Admin: 09/23/19 09:19 Dose: 80 mg Bisacodyl (Dulcolax) 10 mg PO BID [facility] Last Admin: 09/23/19 09:18 Dose: 10 mg Docusate Sodium (Colace) 100 mg PO BID [facility] Last Admin: 09/23/19 09:17 Dose: 100 mg Enoxaparin Sodium (Lovenox) 150 mg SUBCUT DAILY [facility] Hydromorphone HCl (Dilaudid) 1 mg IV Q2H PRN PRN Reason: Pain Last Admin: 09/22/19 21:42 Dose: 1 mg Aztreonam 1 gm/ Sodium (Chloride) 50 mls @ 100 mls/hr IV Q8H [facility] Last Admin: 09/23/19 08:44 Dose: 100 mls/hr Heparin Sodium/Dextrose (Heparin 25,000 Units In D5w 500 Ml) 25,000 units in 500 mls @ 21.6 mls/hr IV TITRATE [facility]; Protocol Stop: 09/24/19 03:00 Last Titration: 09/23/19 05:24 Dose: 11.88 units/kg/hr, 25.993 mls/hr Magnesium Sulfate 2 gm/ Premix 50 mls @ 25 mls/hr IV Q6H [facility] Stop: 09/25/19 05:59 Last Admin: 09/23/19 10:12 Dose: 25 mls/hr Ceftazidime 1 gm/ Sodium (Chloride) 50 mls @ 100 mls/hr IV Q8H [facility] Last Admin: 09/23/19 09:49 Dose: 100 mls/hr Lactated Ringer's (Ringers, Lactated) 1,000 mls @ 25 mls/hr IV ASDIRECTED [facility] Last Admin: 09/23/19 09:46 Dose: 25 mls/hr Insulin Glargine (Lantus Solostar) 34 units SUBCUT DAILY [facility] Last Admin: 09/23/19 09:48 Dose: Not Given Insulin Human Lispro (Humalog) 0 unit SUBCUT QIDACANDBED [facility]; Protocol Last Admin: 09/23/19 09:27 Dose: Not Given Insulin Human Lispro (Humalog) 5 unit SUBCUT TIDMEALS [facility] Last Admin: 09/23/19 11:45 Dose: 5 units Lactobacillus Rhamnosus (Culturelle) 1 cap PO BID [facility] Last Admin: 09/23/19 09:18 Dose: 1 cap Lisinopril (Prinivil) 20 mg PO DAILY [facility] Last Admin: 09/23/19 09:23 Dose: 20 mg Lorazepam (Ativan) 0.5 mg IVPUSH Q4H PRN PRN Reason: Nausea/Vomiting Last Admin: 09/21/19 17:15 Dose: 0.5 mg Magnesium Hydroxide (Milk Of Magnesia) 30 ml PO Q12H PRN PRN Reason: Constipation Metoprolol Succinate (Toprol Xl) 25 mg PO DAILY [facility] Last Admin: 09/23/19 09:20 Dose: 25 mg Montelukast Sodium (Singulair) 10 mg PO DAILY [facility] Last Admin: 09/23/19 09:20 Dose: 10 mg Ondansetron HCl (Zofran Odt) 4 mg PO Q6H PRN PRN Reason: Nausea able to take PO Ondansetron HCl (Zofran) 4 mg IV Q6H PRN PRN Reason: Nausea/Vomiting Last Admin: 09/22/19 00:33 Dose: 4 mg Oxycodone HCl (Oxycodone) 5 - 10 mg PO Q4H PRN PRN Reason: Pain Last Admin: 09/21/19 19:37 Dose: 5 mg Fluticasone/Salmeterol (Fluticasone-Salmeterol 113-14 Mcg Powder Inh) 0 puff INH BIDRT [facility] Last Admin: 09/23/19 07:09 Dose: 1 puff Senna/Docusate Sodium (Senna Plus) 1 tab PO BID PRN PRN Reason: Constipation Sodium Chloride (Saline Flush) 10 ml FLUSH ASDIRECTED PRN PRN Reason: Keep Vein Open Last Admin: 09/21/19 06:35 Dose: 10 ml Warfarin Sodium (Coumadin) 15 mg PO ONETIME ONE Stop: 09/23/19 13:01 Discontinued Medications Bupivacaine HCl/Epinephrine Bitart (Marcaine 0.5%/Epinephrine 1:200,000) Confirm Administered Dose 50 ml .ROUTE .STK-MED ONE Stop: 09/22/19 12:01 Last Admin: 09/22/19 15:03 Dose: 20 ml Ropivacaine 54 ml/Dexamethasone 8 mg/Epinephrine HCl 0.4 mg/ Sodium Chloride 23.6 ml 0 ml NERVRT ASDIRECTED [facility] Last Admin: 09/22/19 14:17 Dose: 80 syringe Dexamethasone (Dexamethasone) Confirm Administered Dose 4 mg .ROUTE .STK-MED ONE Stop: 09/22/19 08:35 Fentanyl (Sublimaze) Confirm Administered Dose 250 mcg .ROUTE .STK-MED ONE Stop: 09/22/19 08:35 Fentanyl (Sublimaze) Confirm Administered Dose 250 mcg .ROUTE .STK-MED ONE Stop: 09/22/19 14:23 Glycopyrrolate (Robinul) Confirm Administered Dose 1 mg .ROUTE .STK-MED ONE Stop: 09/22/19 08:35 Heparin Sodium (Porcine) (Heparin Sodium) 5,000 units IVPUSH .BOLUS ONE Stop: 09/21/19 12:01 Last Admin: 09/21/19 13:08 Dose: 5,000 units Hydromorphone HCl (Dilaudid) 0.5 mg IVPUSH ONETIME ONE Stop: 09/21/19 06:23 Last Admin: 09/21/19 06:35 Dose: 0.5 mg Hydromorphone HCl (Dilaudid) 0.5 mg IVPUSH ONETIME ONE Stop: 09/21/19 07:46 Last Admin: 09/21/19 07:51 Dose: 0.5 mg Hydromorphone HCl (Dilaudid) 0.5 mg IVPUSH Q2H PRN PRN Reason: Pain (severe 7-10) Last Admin: 09/21/19 16:15 Dose: 0.5 mg Hydromorphone HCl (Dilaudid) 0.5 mg IVPUSH Q2H PRN PRN Reason: Pain (severe 7-10) Last Admin: 09/22/19 02:35 Dose: 0.5 mg Lactated Ringer's (Ringers, Lactated) 1,000 mls @ 1,000 mls/hr IV BOLUS ONE Stop: 09/21/19 08:01 Last Admin: 09/21/19 07:43 Dose: 1,000 mls/hr Sodium Chloride (Normal Saline) 85 mls @ 3.5 mls/sec IV ASDIRECTED [facility] Last Admin: 09/21/19 07:49 Dose: 3.5 mls/sec Sodium Chloride (Normal Saline) 1,000 mls @ 999 mls/hr IV ASDIRECTED [facility] Last Admin: 09/21/19 08:49 Dose: 999 mls/hr Ampicillin Sodium/Sulbactam (Sodium 1.5 gm/ Sodium Chloride) 50 mls @ 100 mls/ hr IV ONETIME ONE Stop: 09/21/19 10:07 Last Admin: 09/21/19 09:54 Dose: 100 mls/hr Aztreonam 1 gm/ Sodium (Chloride) 50 mls @ 100 mls/hr IV ONETIME ONE Stop: 09/21/19 10:59 Last Admin: 09/21/19 10:36 Dose: 100 mls/hr Heparin Sodium/Dextrose (Heparin 25,000 Units In D5w 500 Ml) 25,000 units in 500 mls @ 39.384 mls/hr IV TITRATE [facility]; Protocol Stop: 09/22/19 07:30 Last Titration: 09/21/19 20:27 Dose: 9.9 units/kg/hr, 21.661 mls/hr Phytonadione 1 mg/ Sodium (Chloride) 50.5 mls @ 100 mls/hr IV ONETIME ONE Stop: 09/21/19 12:30 Last Admin: 09/21/19 12:16 Dose: 100 mls/hr Piperacillin/Tazobactam/ (Dextrose 3.375 gm/ Premix) 50 mls @ 100 mls/hr IV Q6H [facility] Last Admin: 09/23/19 04:18 Dose: 100 mls/hr Sodium Chloride (Normal Saline) 1,000 mls @ 75 mls/hr IV ASDIRECTED [facility] Dextrose/Lactated Ringer's (Dextrose 5%-Lactated Ringers) 1,000 mls @ 75 mls/ hr IV ASDIRECTED [facility] Last Admin: 09/22/19 09:01 Dose: 75 mls/hr Lactated Ringer's (Ringers, Lactated) Confirm Administered Dose 1,000 mls @ as directed .ROUTE .STK-MED ONE Stop: 09/22/19 14:42 Dextrose/Lactated Ringer's (Dextrose 5%-Lactated Ringers) 1,000 mls @ 50 mls/ hr IV ASDIRECTED [facility] Last Infusion: 09/23/19 06:26 Dose: 0 mls/hr Lactated Ringer's (Ringers, Lactated) 1,000 mls @ 100 mls/hr IV ASDIRECTED [facility] Last Admin: 09/22/19 21:44 Dose: 100 mls/hr Insulin Human Lispro (Humalog) 15 unit SUBCUT ONETIME ONE Stop: 09/23/19 05:34 Last Admin: 09/23/19 05:46 Dose: 15 units Insulin Human Lispro (Humalog) 15 unit SUBCUT ONETIME ONE Stop: 09/23/19 09:17 Last Admin: 09/23/19 09:43 Dose: 15 units Insulin Human Lispro (Humalog) 20 unit SUBCUT ONETIME ONE Stop: 09/23/19 11:22 Last Admin: 09/23/19 11:45 Dose: 20 units Iopamidol (Isovue-300 (61%)) 150 ml IV ONETIME ONE Stop: 09/21/19 07:26 Last Admin: 09/21/19 07:49 Dose: 150 ml Labetalol HCl (Normodyne) Confirm Administered Dose 20 mg .ROUTE .STK-MED ONE Stop: 09/22/19 14:26 Neostigmine Methylsulfate (Neostigmine) Confirm Administered Dose 5 mg .ROUTE .STK-MED ONE Stop: 09/22/19 08:35 Ondansetron HCl (Zofran) Confirm Administered Dose 4 mg .ROUTE .STK-MED ONE Stop: 09/22/19 08:35 Propofol (Diprivan 20 Ml) Confirm Administered Dose 200 mg .ROUTE .STK-MED ONE Stop: 09/22/19 08:35 Rocuronium [place] (Zemuron) Confirm Administered Dose 50 mg .ROUTE .STK-MED ONE Stop: 09/22/19 08:35 Succinylcholine Chloride (Quelicin) Confirm Administered Dose 200 mg .ROUTE .STK -MED ONE Stop: 09/22/19 08:35 Warfarin Sodium (Coumadin) 10 mg PO ONETIME ONE Stop: 09/23/19 13:01 - Exam Quality Assessment: No: Supplemental Oxygen General: Alert, Oriented, Cooperative, No Acute Distress Lungs: Clear to Auscultation, Normal Respiratory Effort Cardiovascular: Regular Rate, Regular Rhythm GI/Abdominal Exam: Normal Bowel Sounds, Soft, No Distention Extremities: No Pedal Edema. No: Increased Warmth Psy/Mental Status: Alert, Normal Affect Sepsis Event Note - Evaluation Sepsis Screening Result: Severe Sepsis Risk - Focused Exam Vital Signs: Vital Signs Temp Pulse Pulse Resp BP BP Pulse Ox 09/23/19 11:00 82 09/23/19 10:49 36.9 C 81 18 127/53 L 94 L 09/23/19 09:23 146/65 H 09/23/19 09:20 76 146/65 H 09/23/19 07:14 80 09/23/19 07:00 36.9 C 76 16 146/65 H 95 09/23/19 03:00 36.7 C 72 16 146/65 H 93 L Date Exam was Performed: 09/23/19 Time Exam was Performed: 12:56 - Problem List & Annotations (1) Acute cholecystitis due to biliary calculus SNOMED Code(s): 01764013132034 Code(s): K80.00 - CALCULUS OF GALLBLADDER W ACUTE CHOLECYST W/O OBSTRUCTION Status: Acute Current Visit: Yes (2) Aortic valve replaced Status: Chronic Current Visit: Yes (3) Type I diabetes mellitus SNOMED Code(s): 42997696 Code(s): E10.9 - TYPE 1 DIABETES MELLITUS WITHOUT COMPLICATIONS Status: Chronic Current Visit: Yes Qualifiers: Diabetes mellitus complication status: without complication Qualified Code( s): E10.9 - Type 1 diabetes mellitus without complications - Problem List Review Problem List Initiated/Reviewed/Updated: Yes - My Orders Last 24 Hours: My Active Orders 09/22/19 16:00 Aztreonam [Azactam] 1 gm Sodium Chloride 0.9% [Normal Saline] 50 ml IV Q8H 09/23/19 09:00 Insulin Glarg,Human.Rec.Analog [LantUS Solostar] 34 units SUBCUT DAILY 09/23/19 09:35 Communication Order [RC] ROUTINE 09/23/19 09:45 Lactated Ringers [Ringers, Lactated] 1,000 ml IV ASDIRECTED 09/23/19 10:00 cefTAZidime Pentahydrate [Fortaz] 1 gm Sodium Chloride 0.9% [Normal Saline] 50 ml IV Q8H 09/23/19 13:00 Warfarin [Coumadin] 15 mg PO ONETIME ONE 09/23/19 16:00 aPTT [PTT,PARTIAL THROMBOPLSTIN TIME] [COAG] Routine 09/23/19 16:30 GLUCOSE POC LAB TO COLLECT [POC] QIDACANDBED 09/23/19 21:00 GLUCOSE POC LAB TO COLLECT [POC] QIDACANDBED 09/24/19 07:30 GLUCOSE POC LAB TO COLLECT [POC] QIDACANDBED 09/24/19 09:00 Enoxaparin [Lovenox] 150 mg SUBCUT DAILY 09/24/19 11:30 GLUCOSE POC LAB TO COLLECT [POC] QIDACANDBED 09/24/19 16:30 GLUCOSE POC LAB TO COLLECT [POC] QIDACANDBED 09/24/19 21:00 GLUCOSE POC LAB TO COLLECT [POC] QIDACANDBED 09/25/19 07:30 GLUCOSE POC LAB TO COLLECT [POC] QIDACANDBED 09/25/19 11:30 GLUCOSE POC LAB TO COLLECT [POC] QIDACANDBED 09/25/19 16:30 GLUCOSE POC LAB TO COLLECT [POC] QIDACANDBED 09/25/19 21:00 GLUCOSE POC LAB TO COLLECT [POC] QIDACANDBED 09/26/19 07:30 GLUCOSE POC LAB TO COLLECT [POC] QIDACANDBED 09/26/19 11:30 GLUCOSE POC LAB TO COLLECT [POC] QIDACANDBED 09/26/19 16:30 GLUCOSE POC LAB TO COLLECT [POC] QIDACANDBED - Plan Plan:: ASSESSMENT AND PLAN - Acute cholecystitis with cholelithiasis-no evidence for biliary duct obstruction at this time. Gangrenous gallbladder with pericholecystic fluid and inflammatory fibrinous material surrounding the gallbladder noted at the time of surgery. Stable and doing well since surgery. Moderate drainage from the TYRONE site. -IV fluids at TKO -Antibiotic coverage with ceftazidime -Aztreonam per surgical recommendations -Blood cultures if he spikes a fever -Pain control -Surgical follow-up per Dr. Bush -Anticoagulation management as below Status post mechanical aortic valve replacement-he is chronically anticoagulated with warfarin. Warfarin will be reinitiated today. -Heparin infusion today and plan to discontinue at 3 AM tomorrow -Start enoxaparin 1.5 mg/kg every 24 hours tomorrow -Continue enoxaparin until INR is therapeutic -Warfarin 15 mg x1 today with INR in the morning Type 1 diabetes mellitus-significant hyperglycemia encountered today. -Restart long-acting insulin -Mealtime insulin with medium dose sliding scale -additional insulin as indicated Stage III chronic kidney disease-creatinine moderately higher today, probably related to acute illness with possible contribution from penicillin antibiotic. -Stop Pip/Tazo -Repeat labs in the morning Maintenance issues - - DVT prophylaxis -heparin infusion - GI prophylaxis -not indicated - Nutrition -full liquids - Atkins catheter -not indicated Disposition -I would anticipate discharge home after the hospital stay Primary care physician -Oli English M.D.
[2019-09-23] MEDS ORDERED: Warfarin 5 MG Tab PO ONE ×2 (13:00)
--- NOTE | 2019-09-23 13:01 | PN ---
DATE OF SERVICE: 09/23/2019 The patient is quite a bit more alert and obviously feeling better today. He is afebrile with stable vital signs. Cultures are still pending and we will continue the present antibiotics for today. Blood sugar is quite high. We will switch his IV over to plain LR and he will be getting his Lantus starting this morning as well as coverage, that should come down as the day goes by. Otherwise, we will begin full liquid diet today, continue the present IV antibiotics. Magnesium is somewhat low and that will be supplemented. His PTT is 48.5 with therapeutic level beginning at 50, so we will just need to increase the drip slightly. We will recheck ProTime at around 9 a.m. Otherwise, we will give him 10 mg of Coumadin today to begin the process of getting that back on board. James Bush MD /[id number]
[2019-09-23] MEDS: Heparin Sodium/D5W 25,000 UNITS/500 ML BAG IV SCH (13:34)
[2019-09-23] MEDS: oxyCODONE 5 MG Tab PO PRN (23:03)
[2019-09-24] MEDS: Magnesium Sulfate/Water 2 GM in Premix Bag 1 BAG IV SCH ×2 (03:10→09:31)
[2019-09-24] MEDS: Albuterol/Ipratropium 3.0-0.5 MG/3 ML Neb Soln INH SCH ×2 (07:15→11:18)
[2019-09-24] MEDS: Fluticasone-Salmeterol 113-14 MCG Powder Inhalant INH SCH (07:15)
[2019-09-24] MEDS ORDERED: Potassium Phosphates 30 MMOLE in Sodium Chloride 0.9% 250 ML IV SCH (07:45)
[2019-09-24] MEDS ORDERED: Amoxicillin/Clavulanate K 875-125 MG Tab PO SCH (08:00)
[2019-09-24] MEDS: Insulin Glargine,Human Rec. Analog 100 Units/ML 3 ML Pen SUBCUT SCH (08:05)
[2019-09-24] MEDS: Insulin Lispro 100 Unit/ML 3 ML KwikPen SUBCUT SCH ×4 (08:06→12:10)
[2019-09-24] MEDS: Lisinopril 20 MG Tab PO SCH (08:12)
[2019-09-24] MEDS: atorvaSTATin 20 MG Tab PO SCH (08:12)
[2019-09-24] MEDS: Montelukast 10 MG Tab PO SCH (08:13)
[2019-09-24] MEDS: Docusate Sodium 100 MG Cap PO SCH (08:13)
[2019-09-24] MEDS: Bisacodyl 5 MG Tab PO SCH (08:13)
[2019-09-24] MEDS: Metoprolol Succinate 25 MG Tab.ER PO SCH (08:14)
[2019-09-24] MEDS: Lactobacillus Rhamnosus GG (Probiotic) Cap PO SCH (08:14)
[2019-09-24] MEDS: oxyCODONE 5 MG Tab PO PRN (08:21)
[2019-09-24] MEDS ORDERED: Potassium Phos in 0.9 % NaCl 15 MMOL in Premix Bag 1 BAG IV SCH ×2 (08:30)
[2019-09-24] MEDS ORDERED: Enoxaparin 150 MG/1 ML Syringe SUBCUT SCH (09:00)
--- NOTE | 2019-09-24 10:12 | PCM.DCSUM1 ---
Discharge Summary - Hospital Course Brief History: 64-year-old male with history of insulin-dependent diabetes mellitus, mechanical aortic valve replacement with systemic anticoagulation, cerebrovascular disease, obstructive sleep apnea on CPAP who presented with severe abdominal pain. He was admitted for management of acute cholecystitis. Diagnosis: Stroke: No - Discharge Data Discharge Date: 09/24/19 Discharge Disposition: Home, Self-Care 01 Condition: Good - Referral to Home Health Primary Care Physician: PCP None - Discharge Diagnosis/Problem(s) (1) Acute cholecystitis due to biliary calculus SNOMED Code(s): 97172558033102 ICD Code: K80.00 - CALCULUS OF GALLBLADDER W ACUTE CHOLECYST W/O OBSTRUCTION Status: Acute Current Visit: Yes (2) Aortic valve replaced Status: Chronic Current Visit: Yes (3) Type I diabetes mellitus SNOMED Code(s): 38470582 ICD Code: E10.9 - TYPE 1 DIABETES MELLITUS WITHOUT COMPLICATIONS Status: Chronic Current Visit: Yes Qualifiers: Diabetes mellitus complication status: without complication Qualified Code( s): E10.9 - Type 1 diabetes mellitus without complications - Patient Summary/Data Consults: Consultations 09/21/19 11:15 Consult to Physician [CONS] Routine Consulting Provider: James Bushesy Call Completed to Consulting Physician: Yes Reason for Consult: cholecystitis Person Notified: FOUNTAIN Date Notified: 09/21/19 Special Instructions: surgery tomorrow afternoon Hospital Course: Gold presented to the emergency room with acute right upper quadrant abdominal pain. Work-up in the emergency room was suggestive of acute cholecystitis. Patient was admitted to the hospital for hydration and initiation of antibiotic therapy. He was on warfarin for a mechanical aortic valve so he needed to have his INR reversed and needed bridging anticoagulation as well. He was admitted to the medical floor. He received 1 mg of IV vitamin K and was started on a heparin infusion. We initiated Pip/Tazo for antibiotic coverage. Overnight following admission he continued to have pain which was moderate in nature. The morning after admission he the heparin infusion was stopped and later in the day he was taken to the operating room. He had a laparoscopic cholecystectomy as well as drainage of a osmani-cholecystic fluid collection and excision of an inflammatory mass near the gallbladder which was adherent to the omentum. The gallbladder appeared gangrenous at the time of surgery. A TYRONE drain was left in place after the surgery. He remained on IV antibiotics following the surgery. In the immediate postoperative period there was no significant difficulties. The day after surgery he had a fair amount of hyperglycemia which did eventually improve with supplemental insulin and in addition to his long-acting insulin. His cultures have all been negative. He has tolerated the IV antibiotics and will be transitioned to oral antibiotics. Postoperatively he was managed with a heparin drip initially and then this was transitioned to enoxaparin and his warfarin has been restarted. His INR is not yet therapeutic. He will continue on enoxaparin injections daily until his INR is therapeutic. He will be on oral antibiotics for 1 week. He will be following up next week with the general surgery clinic. He has follow-up scheduled with the Coumadin clinic next week as well. - Patient Instructions Diet: Usual Diet as Tolerated, Drink 8-10+ Glasses/Day Activity: No Lifting Over 10 Pounds (for 2 weeks ) Activity, Other: walk at least 6 times daily inside your home Driving: Do Not Drive (for 1 week and while on pain medication ) Showering/Bathing: May Shower Wound/Incision Care: Keep Operative Site/Wound Site Clean and Dry Notify Provider of: Fever, Increased Pain, Swelling and Redness, Nausea and/or Vomiting Other/Special Instructions: 1. Use incentive inspirometer 10 times every hour while awake for 1 week. 2. Take 15 mg of warfarin daily until your follow up with the Coumadin Clinic on Friday. 3. Inject enoxaparin 150 mg once daily until your INR is in the goal range. You will receive further direction from the Coumadin Clinic Friday. 4. If you have difficulties or concerns over the weekend you may contact me (Dr English) at the hospital by calling [phone]. Let the nursing station know that you are a patient here and I told you to call here if you had difficulties. - Discharge Plan *PRESCRIPTION DRUG MONITORING PROGRAM REVIEWED*: No *COPY OF PRESCRIPTION DRUG MONITORING REPORT IN PATIENT BENNY: No Prescriptions/Med Rec: Amoxicillin/Clavulanate K [Augmentin 875-125 MG] 1 tab PO Q12H #14 tablet bisacodyL [Dulcolax] 10 mg PO BID #60 tablet Enoxaparin [Lovenox] 150 mg SUBCUT DAILY #4 syringe Lactobacillus Rhamnosus GG [Culturelle] 1 cap PO BID #60 cap oxyCODONE 5 mg PO Q6H PRN #28 tablet PRN Reason: Pain Home Medications: Home Meds Fluticasone/Salmeterol [Advair 250-50 Diskus] 1 puff INH DAILY 07/18/17 [History ] Insulin Aspart [Novolog Flexpen] 1 unit SUBCUT ASDIRECTED 07/18/17 [History] Insulin Glarg,Human.Rec.Analog [Lantus Solostar] 34 unit SUBCUT DAILY 07/18/17 [ History] Lisinopril 1 tab PO DAILY 07/18/17 [History] Metoprolol Succinate [Toprol XL] 1 tab PO DAILY 07/18/17 [History] Montelukast [Singulair] 1 tab PO DAILY 07/18/17 [History] Warfarin [Coumadin] 1 tab PO SUTUTHSA 07/18/17 [History] Warfarin [Coumadin] 15 mg PO MOWEFR 07/18/17 [History] atorvaSTATin Calcium [Atorvastatin Calcium] 1 tab PO DAILY 07/18/17 [History] Phytonadione [Vitamin K] 1 tab PO DAILY 09/21/19 [History] Acetaminophen [Tylenol] 650 mg PO Q4H PRN tablet 09/24/19 [Rx] Amoxicillin/Clavulanate K [Augmentin 875-125 MG] 1 tab PO Q12H #14 tablet [Rx] Enoxaparin [Lovenox] 150 mg SUBCUT DAILY #4 syringe 09/24/19 [Rx] Lactobacillus Rhamnosus GG [Culturelle] 1 cap PO BID #60 cap 09/24/19 [Rx] bisacodyL [Dulcolax] 10 mg PO BID #60 tablet 09/24/19 [Rx] oxyCODONE 5 mg PO Q6H PRN #28 tablet 09/24/19 [Rx] Patient Handouts: Amoxicillin; Clavulanic Acid tablets, Enoxaparin injection, Low-Sodium Eating Plan, Heart-Healthy Eating Plan Referrals: Jessy Chavira PA-C [Physician Crm Consultant] - 09/28/19 10:30 am (appointment at [place], [place] with Jessy Morrell [phone]) - Discharge Summary/Plan Comment DC Time >30 min.: No - Patient Data Vitals - Most Recent: Last Vital Signs Temp 36.6 C 09/24/19 07:37 Pulse 78 09/24/19 08:14 Resp 16 09/24/19 07:37 BP 152/58 H 09/24/19 08:14 Pulse Ox 89 L 09/24/19 07:37 Weight - Most Recent: 109.4 kg I&O - Last 24 hours: Intake & Output 09/23/19 09/24/19 09/24/19 22:59 06:59 14:59 Intake Total 2299 1429 300 Output Total 30 450 Balance 2269 979 300 Lab Results - Last 24 hrs: Laboratory Results - last 24 hr 09/23/19 09/23/19 09/24/19 Range/Units 10:00 16:04 03:53 WBC 11.4 H (4.5-11.0) K/uL RBC 3.86 L (4.30-5.90) M/uL Hgb 11.2 L (12.0-15.0) g/dL Hct 33.6 L (40.0-54.0) % MCV 87 (80-98) fL MCH 29 (27-31) pg MCHC 33 (32-36) % Plt Count 210 (150-400) K/uL PT (9.5-12.0) sec INR (0.80-1.20) APTT 53.1 H 53.8 H (27.0-36.0) sec Sodium (140-148) mmol/L Potassium (3.6-5.2) mmol/L Chloride (100-108) mmol/L Carbon Dioxide (21-32) mmol/L Anion Gap (5.0-14.0) mmol/L BUN (7-18) mg/dL Creatinine (0.8-1.3) mg/dL Est Cr Clr Drug Dosing mL/min Estimated GFR (MDRD) (>60) Glucose (74-106) mg/dL Calcium (8.5-10.1) mg/dL Phosphorus (2.5-4.9) mg/dL Magnesium (1.8-2.4) mg/dL Total Bilirubin (0.2-1.0) mg/dL AST (15-37) U/L ALT (12-78) U/L Alkaline Phosphatase (46-116) U/L NT-Pro-B Natriuret Pep (5-125) pg/mL Total Protein (6.4-8.2) g/dL Albumin (3.4-5.0) g/dL Globulin (2.3-3.5) g/dL Albumin/Globulin Ratio (1.2-2.2) 09/24/19 09/24/19 Range/Units 03:53 03:53 WBC (4.5-11.0) K/uL RBC (4.30-5.90) M/uL Hgb (12.0-15.0) g/dL Hct (40.0-54.0) % MCV (80-98) fL MCH (27-31) pg MCHC (32-36) % Plt Count (150-400) K/uL PT 13.4 H (9.5-12.0) sec INR 1.26 H (0.80-1.20) APTT (27.0-36.0) sec Sodium 138 L (140-148) mmol/L Potassium 3.7 (3.6-5.2) mmol/L Chloride 103 (100-108) mmol/L Carbon Dioxide 28 (21-32) mmol/L Anion Gap 10.7 (5.0-14.0) mmol/L BUN 16 (7-18) mg/dL Creatinine 1.2 (0.8-1.3) mg/dL Est Cr Clr Drug Dosing 61.18 mL/min Estimated GFR (MDRD) > 60 (>60) Glucose 339 H (74-106) mg/dL Calcium 7.8 L (8.5-10.1) mg/dL Phosphorus 1.9 L (2.5-4.9) mg/dL Magnesium 2.6 H (1.8-2.4) mg/dL Total Bilirubin 0.6 D (0.2-1.0) mg/dL AST 42 H (15-37) U/L ALT 49 (12-78) U/L Alkaline Phosphatase 70 (46-116) U/L NT-Pro-B Natriuret Pep 837 H (5-125) pg/mL Total Protein 5.4 L (6.4-8.2) g/dL Albumin 2.1 L (3.4-5.0) g/dL Globulin 3.3 (2.3-3.5) g/dL Albumin/Globulin Ratio 0.6 L (1.2-2.2) FERNANDA Results - Last 24 hrs: Microbiology 09/22/19 14:41 Gram Stain - Final Gallbladder Wound Culture - Preliminary NO GROWTH AFTER 1 DAY Anaerobic Culture - Preliminary NO GROWTH AFTER 1 DAY Med Orders - Current: Current Medications Acetaminophen (Tylenol) 650 mg PO Q4H PRN PRN Reason: Pain (Mild 1-3)/fever Albuterol (Proventil Neb Soln) 2.5 mg NEB Q4H PRN PRN Reason: Shortness Of Breath/wheezing Albuterol/Ipratropium (Duoneb 3.0-0.5 Mg/3 Ml) 3 ml INH QIDRT [facility] Last Admin: 09/24/19 07:15 Dose: 3 ml Albuterol/Ipratropium (Duoneb 3.0-0.5 Mg/3 Ml) 3 ml INH ASDIRECTED PRN PRN Reason: BREATHING Amoxicillin/Clavulanate Potassium (Augmentin 875 Mg/125 Mg) 1 tab PO Q12H [facility] Last Admin: 09/24/19 08:22 Dose: 1 tab Atorvastatin Calcium (Lipitor) 80 mg PO DAILY [facility] Last Admin: 09/24/19 08:12 Dose: 80 mg Bisacodyl (Dulcolax) 10 mg PO BID [facility] Last Admin: 09/24/19 08:13 Dose: 10 mg Docusate Sodium (Colace) 100 mg PO BID [facility] Last Admin: 09/24/19 08:13 Dose: 100 mg Enoxaparin Sodium (Lovenox) 150 mg SUBCUT DAILY [facility] Last Admin: 09/24/19 08:13 Dose: 150 mg Hydromorphone HCl (Dilaudid) 1 mg IV Q2H PRN PRN Reason: Pain Last Admin: 09/22/19 21:42 Dose: 1 mg Magnesium Sulfate 2 gm/ Premix 50 mls @ 25 mls/hr IV Q6H [facility] Stop: 09/25/19 05:59 Last Admin: 09/24/19 09:31 Dose: 25 mls/hr Lactated Ringer's (Ringers, Lactated) 1,000 mls @ 25 mls/hr IV ASDIRECTED [facility] Last Admin: 09/23/19 09:46 Dose: 25 mls/hr Potassium Phosphate 15 mmol/ (Premix) 250 mls @ 84 mls/hr IV Q3H [facility] Stop: 09/24/19 11:15 Last Admin: 09/24/19 09:30 Dose: 84 mls/hr Insulin Glargine (Lantus Solostar) 34 units SUBCUT DAILY [facility] Last Admin: 09/24/19 08:05 Dose: 34 units Insulin Human Lispro (Humalog) 0 unit SUBCUT QIDACANDBED [facility]; Protocol Last Admin: 09/24/19 08:07 Dose: 10 units Insulin Human Lispro (Humalog) 5 unit SUBCUT TIDMEALS [facility] Last Admin: 09/24/19 08:06 Dose: 5 units Lactobacillus Rhamnosus (Culturelle) 1 cap PO BID [facility] Last Admin: 09/24/19 08:14 Dose: 1 cap Lisinopril (Prinivil) 20 mg PO DAILY [facility] Last Admin: 09/24/19 08:12 Dose: 20 mg Lorazepam (Ativan) 0.5 mg IVPUSH Q4H PRN PRN Reason: Nausea/Vomiting Last Admin: 09/21/19 17:15 Dose: 0.5 mg Magnesium Hydroxide (Milk Of Magnesia) 30 ml PO Q12H PRN PRN Reason: Constipation Metoprolol Succinate (Toprol Xl) 25 mg PO DAILY [facility] Last Admin: 09/24/19 08:14 Dose: 25 mg Montelukast Sodium (Singulair) 10 mg PO DAILY [facility] Last Admin: 09/24/19 08:13 Dose: 10 mg Ondansetron HCl (Zofran Odt) 4 mg PO Q6H PRN PRN Reason: Nausea able to take PO Ondansetron HCl (Zofran) 4 mg IV Q6H PRN PRN Reason: Nausea/Vomiting Last Admin: 09/22/19 00:33 Dose: 4 mg Oxycodone HCl (Oxycodone) 5 - 10 mg PO Q4H PRN PRN Reason: Pain Last Admin: 09/24/19 08:21 Dose: 5 mg Potassium Chloride (Klor-Con M20) 20 meq PO ONETIME ONE Stop: 09/24/19 10:16 Fluticasone/Salmeterol (Fluticasone-Salmeterol 113-14 Mcg Powder Inh) 0 puff INH BIDRT [facility] Last Admin: 09/24/19 07:15 Dose: 1 puff Senna/Docusate Sodium (Senna Plus) 1 tab PO BID PRN PRN Reason: Constipation Sodium Chloride (Saline Flush) 10 ml FLUSH ASDIRECTED PRN PRN Reason: Keep Vein Open Last Admin: 09/21/19 06:35 Dose: 10 ml Warfarin Sodium (Coumadin) 10 mg PO ONETIME ONE Stop: 09/24/19 11:01 Discontinued Medications Bupivacaine HCl/Epinephrine Bitart (Marcaine 0.5%/Epinephrine 1:200,000) Confirm Administered Dose 50 ml .ROUTE .STK-MED ONE Stop: 09/22/19 12:01 Last Admin: 09/22/19 15:03 Dose: 20 ml Ropivacaine 54 ml/Dexamethasone 8 mg/Epinephrine HCl 0.4 mg/ Sodium Chloride 23.6 ml 0 ml NERVRT ASDIRECTED [facility] Last Admin: 09/22/19 14:17 Dose: 80 syringe Dexamethasone (Dexamethasone) Confirm Administered Dose 4 mg .ROUTE .STK-MED ONE Stop: 09/22/19 08:35 Fentanyl (Sublimaze) Confirm Administered Dose 250 mcg .ROUTE .STK-MED ONE Stop: 09/22/19 08:35 Fentanyl (Sublimaze) Confirm Administered Dose 250 mcg .ROUTE .STK-MED ONE Stop: 09/22/19 14:23 Glycopyrrolate (Robinul) Confirm Administered Dose 1 mg .ROUTE .STK-MED ONE Stop: 09/22/19 08:35 Heparin Sodium (Porcine) (Heparin Sodium) 5,000 units IVPUSH .BOLUS ONE Stop: 09/21/19 12:01 Last Admin: 09/21/19 13:08 Dose: 5,000 units Hydromorphone HCl (Dilaudid) 0.5 mg IVPUSH ONETIME ONE Stop: 09/21/19 06:23 Last Admin: 09/21/19 06:35 Dose: 0.5 mg Hydromorphone HCl (Dilaudid) 0.5 mg IVPUSH ONETIME ONE Stop: 09/21/19 07:46 Last Admin: 09/21/19 07:51 Dose: 0.5 mg Hydromorphone HCl (Dilaudid) 0.5 mg IVPUSH Q2H PRN PRN Reason: Pain (severe 7-10) Last Admin: 09/21/19 16:15 Dose: 0.5 mg Hydromorphone HCl (Dilaudid) 0.5 mg IVPUSH Q2H PRN PRN Reason: Pain (severe 7-10) Last Admin: 09/22/19 02:35 Dose: 0.5 mg Lactated Ringer's (Ringers, Lactated) 1,000 mls @ 1,000 mls/hr IV BOLUS ONE Stop: 09/21/19 08:01 Last Admin: 09/21/19 07:43 Dose: 1,000 mls/hr Sodium Chloride (Normal Saline) 85 mls @ 3.5 mls/sec IV ASDIRECTED [facility] Last Admin: 09/21/19 07:49 Dose: 3.5 mls/sec Sodium Chloride (Normal Saline) 1,000 mls @ 999 mls/hr IV ASDIRECTED [facility] Last Admin: 09/21/19 08:49 Dose: 999 mls/hr Ampicillin Sodium/Sulbactam (Sodium 1.5 gm/ Sodium Chloride) 50 mls @ 100 mls/ hr IV ONETIME ONE Stop: 09/21/19 10:07 Last Admin: 09/21/19 09:54 Dose: 100 mls/hr Aztreonam 1 gm/ Sodium (Chloride) 50 mls @ 100 mls/hr IV ONETIME ONE Stop: 09/21/19 10:59 Last Admin: 09/21/19 10:36 Dose: 100 mls/hr Heparin Sodium/Dextrose (Heparin 25,000 Units In D5w 500 Ml) 25,000 units in 500 mls @ 39.384 mls/hr IV TITRATE [facility]; Protocol Stop: 09/22/19 07:30 Last Titration: 09/21/19 20:27 Dose: 9.9 units/kg/hr, 21.661 mls/hr Phytonadione 1 mg/ Sodium (Chloride) 50.5 mls @ 100 mls/hr IV ONETIME ONE Stop: 09/21/19 12:30 Last Admin: 09/21/19 12:16 Dose: 100 mls/hr Piperacillin/Tazobactam/ (Dextrose 3.375 gm/ Premix) 50 mls @ 100 mls/hr IV Q6H [facility] Last Admin: 09/23/19 04:18 Dose: 100 mls/hr Sodium Chloride (Normal Saline) 1,000 mls @ 75 mls/hr IV ASDIRECTED [facility] Dextrose/Lactated Ringer's (Dextrose 5%-Lactated Ringers) 1,000 mls @ 75 mls/ hr IV ASDIRECTED [facility] Last Admin: 09/22/19 09:01 Dose: 75 mls/hr Lactated Ringer's (Ringers, Lactated) Confirm Administered Dose 1,000 mls @ as directed .ROUTE .STK-MED ONE Stop: 09/22/19 14:42 Aztreonam 1 gm/ Sodium (Chloride) 50 mls @ 100 mls/hr IV Q8H [facility] Stop: 09/24/19 09:30 Last Admin: 09/24/19 08:10 Dose: 100 mls/hr Dextrose/Lactated Ringer's (Dextrose 5%-Lactated Ringers) 1,000 mls @ 50 mls/ hr IV ASDIRECTED [facility] Last Infusion: 09/23/19 06:26 Dose: 0 mls/hr Lactated Ringer's (Ringers, Lactated) 1,000 mls @ 100 mls/hr IV ASDIRECTED [facility] Last Admin: 09/22/19 21:44 Dose: 100 mls/hr Heparin Sodium/Dextrose (Heparin 25,000 Units In D5w 500 Ml) 25,000 units in 500 mls @ 21.6 mls/hr IV TITRATE [facility]; Protocol Stop: 09/24/19 03:00 Last Admin: 09/23/19 13:34 Dose: 11.88 units/kg/hr, 25.993 mls/hr Ceftazidime 1 gm/ Sodium (Chloride) 50 mls @ 100 mls/hr IV Q8H [facility] Last Admin: 09/24/19 01:13 Dose: 100 mls/hr Insulin Human Lispro (Humalog) 15 unit SUBCUT ONETIME ONE Stop: 09/23/19 05:34 Last Admin: 09/23/19 05:46 Dose: 15 units Insulin Human Lispro (Humalog) 15 unit SUBCUT ONETIME ONE Stop: 09/23/19 09:17 Last Admin: 09/23/19 09:43 Dose: 15 units Insulin Human Lispro (Humalog) 20 unit SUBCUT ONETIME ONE Stop: 09/23/19 11:22 Last Admin: 09/23/19 11:45 Dose: 20 units Iopamidol (Isovue-300 (61%)) 150 ml IV ONETIME ONE Stop: 09/21/19 07:26 Last Admin: 09/21/19 07:49 Dose: 150 ml Labetalol HCl (Normodyne) Confirm Administered Dose 20 mg .ROUTE .STK-MED ONE Stop: 09/22/19 14:26 Neostigmine Methylsulfate (Neostigmine) Confirm Administered Dose 5 mg .ROUTE .STK-MED ONE Stop: 09/22/19 08:35 Ondansetron HCl (Zofran) Confirm Administered Dose 4 mg .ROUTE .STK-MED ONE Stop: 09/22/19 08:35 Propofol (Diprivan 20 Ml) Confirm Administered Dose 200 mg .ROUTE .STK-MED ONE Stop: 09/22/19 08:35 Rocuronium [place] (Zemuron) Confirm Administered Dose 50 mg .ROUTE .STK-MED ONE Stop: 09/22/19 08:35 Succinylcholine Chloride (Quelicin) Confirm Administered Dose 200 mg .ROUTE .STK -MED ONE Stop: 09/22/19 08:35 Warfarin Sodium (Coumadin) 15 mg PO ONETIME ONE Stop: 09/23/19 13:01 Last Admin: 09/23/19 12:56 Dose: 15 mg *Q Meaningful Use (DIS) - VTE *Q VTE Pharmacological Contraindications *Q: Patient Scheduled Surgery
[2019-09-24] MEDS ORDERED: Potassium Chloride 20 MEQ Tab.ER PO ONE (10:15)
[2019-09-24] MEDS ORDERED: Warfarin 5 MG Tab PO ONE (11:00)
[2019-09-24] MEDS ORDERED: Insulin Lispro 100 Unit/ML 3 ML KwikPen SUBCUT ONE (11:56)
--- NOTE | 2019-09-24 23:28 | DISCH ---
ADMISSION DIAGNOSES: 1. Right upper quadrant abdominal pain. 2. Acute cholecystitis due to biliary calculus. 3. Aortic valve replacement. 4. Chronic anticoagulation therapy. 5. Diabetes mellitus type 1. OPERATIVE PROCEDURE: Diagnostic laparoscopy with: 1. Cholecystectomy. 2. Drainage of pericholecystic abscess. 3. Excision of fibrinous peritoneal mass/implant. Date of surgery, 09/22/2019. Surgeon; James Bush M.D. DISCHARGE DIAGNOSES: 1. Acute gangrenous cholecystitis/cholelithiasis. 2. Pericholecystic abscess. 3. 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 HISTORY: Omer Green is a 64-year-old male, who presented to the emergency room at [facility] with severe right upper quadrant abdominal pain. He was admitted to the hospital and had his surgery. He was admitted to the hospital on 09/21/2019, surgery was performed on 09/22/2019. He had no operative complications. On postop day #1, he was started on a full liquid diet, Coumadin was adjusted, and he continued to be on Lovenox. Activity was good. On postop day #2, pain was well managed. Activity was good. PT was 13.4, INR was 1.26. He was able to be discharged to home. PHYSICAL EXAMINATION: GENERAL: Omer Green is a pleasant 64-year-old male. VITAL SIGNS: Height is 5 feet 8.11 inches, weight is 241 pounds, BMI is 36. TPR is 98, 72, 16. Blood pressure is 121/61. HEENT: Negative. NECK: Supple. HEART: Regular rate and rhythm. LUNGS: Clear. ABDOMEN: Dressings dry and intact. TYRONE drain intact draining a light pink drainage. EXTREMITIES: Without peripheral edema. DISPOSITION: Discharged to home. CONDITION: Stable and improving. FOLLOWUP: Followup appointment with Jessy Chavira PA-C, at [facility] on 09/28/2019, at 10:30 a.m. HOME MEDICATIONS: 1. Tylenol 650 mg oral q.4 hours p.r.n. pain. 2. Augmentin 875/125 mg 1 tablet b.i.d. for 14 days. 3. Dulcolax tablets 10 mg oral twice daily, #60. 4. Lovenox 150 mg subcu daily for 4 days starting tomorrow. 5. Culturelle 1 capsule oral twice daily. 6. Oxycodone 5 mg oral q.6 hours p.r.n. pain, #28. He is to resume takin. Advair 250/50 one puff inhalation daily. 2. Lantus 34 units subcu daily. 3. NovoLog FlexPen 1 unit subcu as directed at mealtime. 4. Lisinopril 1 tablet oral daily. 5. Toprol-XL 1 tablet oral daily. 6. Singulair 1 tablet oral daily. 7. Vitamin K 1 tablet oral daily as directed. 8. Coumadin 15 mg every Friday, Friday, and Friday, and he takes another dose depending on what his PT and INR is on Friday, , and Friday. 9. Atorvastatin 1 tablet oral daily. DISCHARGE INSTRUCTIONS: 1. Diet: Usual diet as tolerated. Drink 8 to 10 glasses of water a day. 2. Activity: No lifting greater than 10 pounds for 2 weeks. 3. Other activity: Walk at least 6 times daily inside your home. 4. Driving: Do not drive for 1 week and while on pain medication. 5. Shower/bathing: May shower. 6. Notify provider if any fever, increased pain, swelling, redness, nausea or vomiting. 7. Keep site clean and dry. Incision; place a gauze dressing over the top of the incision and change it once a day or as needed. 8. Wear abdominal binder for 2 weeks and then as tolerated. 9. Use incentive spirometer 10 times every hour while awake until incision is closed.
--- NOTE | 2019-09-26 13:23 | OR ---
DATE OF PROCEDURE: 09/22/2019 SURGEON: James Bush MD PREOPERATIVE DIAGNOSIS: Acute cholecystitis. POSTOPERATIVE DIAGNOSES: 1. Acute gangrenous cholecystitis and cholelithiasis. 2. Pericholecystic abscess. 3. 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 OPERATIVE PROCEDURES: Diagnostic laparoscopy with, 1. Cholecystectomy (45679). 2. Drainage of pericholecystic abscess (44680). 3. Excision of fibrous peritoneal implant adherent to surface of gallbladder adjacent to liver (31317). ANESTHESIA: General. INDICATION FOR PROCEDURE: This is a 64-year-old presenting yesterday with a picture of an acute cholecystitis. He is admitted for medical stabilization and reversal of his anti- coagulation status. The plan is to proceed with a cholecystectomy via laparoscopic or, if necessary, open approach. Potential risks of the procedure were reviewed with the patient and his , including bleeding, infection, injury to underlying viscera, as well as the possibility of cardiopulmonary, septic, or hemorrhagic complications leading to were all reviewed, and the patient wishes to proceed. DETAILS OF PROCEDURE: The patient was taken to the operating room. After general endotracheal anesthesia was induced, the abdomen was draped. A transverse incision just to the right of the umbilicus was made and carried down through the skin and subcutaneous tissue. The peritoneal cavity was entered under direct vision with an Optiview trocar. Following this, the peritoneal cavity was inflated to 15 mmHg pressure with CO2. Laparoscope was reinserted. No underlying trocar insertion site injuries were seen. Following this, a 12-mm trocar was placed in the epigastric site and two 5 mm trocars were placed in the right subcostal area. As one retracted the gallbladder bed anteriorly, an inflammatory fluid collection, which was slightly purulent and associated with peritonitis within the surrounding tissues, was identified and cultures were obtained. Once this abscess-type fluid was removed, the gallbladder was noted to be densely distended and had some green gangrenous changes spread sporadically across its surface. To facilitate manipulation of gallbladder, a cholecystotomy was then undertaken. The gallbladder contents were evacuated. A large amount of small stones or sludge were evacuated at that point. The gallbladder was then retracted anteriorly and laterally. As one proceeded with the dissection, it was noted that a fibrinous-type mass was present more or less at the junction of the lateral aspect of the gallbladder and surface of the adjacent liver. This was dissected free and sent as a separate specimen. This was roughly 1.5 cm in maximal size. Once this was delivered from the field, the dissection continued around the gallbladder neck and cystic duct junction. Once that area was well delineated as well as the adjacent cystic artery, the cystic duct which was quite thickened and edematous, was divided with a WANDER cam load, which was also used to divide the cystic artery with a separate WANDER staple firing. The remaining attachments of the gallbladder to the liver were then divided. What appeared to be an additional potential area of arterial inflow was clipped 3 times proximally and divided, and the gallbladder was dissected off the gallbladder bed using Harmonic scalpel and delivered through the epigastric trocar site, which needed to be expanded somewhat to allow evacuation of the gallbladder. The area of dissection was then inspected. No bleeding or bile leaks were seen. A [place] drain was placed through the right lateral trocar site and placed in the area of the gallbladder bed. At that point, trocars were sequentially removed. The fascia at the 12 mm site was closed with 0 Vicryl stitch, and the skin with 4-0 Vicryl stitch, other than the epigastric site, which was packed open with iodoform gauze. The patient was taken to the recovery room in satisfactory condition. James Bush MD /[id number]
== END 2019-09-24 15:25 | disposition home or self-care (01) | DRG 263 ==
LOC: JP.ED 05:38 → JP.ICU 10:34 → JP.MS 09-23 09:46
PROVIDERS: ADMIT Internal Medicine; ATTEND Internal Medicine
PROC: 0FT44ZZ Resection of Gallbladder, Percutaneous Endoscopic Approach (ICD-10-PCS; principal; 2019-09-22)
PROC: 0F944ZZ Drainage of Gallbladder, Percutaneous Endoscopic Approach (ICD-10-PCS; 2019-09-22)
DX: K80.00 Calculus of gallbladder with acute cholecystitis without obstruction (principal); G47.33 Obstructive sleep apnea (adult) (pediatric); E10.65 Type 1 diabetes mellitus with hyperglycemia; K82.A1 Gangrene of gallbladder in cholecystitis; Z79.01 Long term (current) use of anticoagulants; Z95.2 Presence of prosthetic heart valve; Z99.81 Dependence on supplemental oxygen; Z79.899 Other long term (current) drug therapy
CPT/HCPCS: 36415; 74177; 80048; 80053; 80076; 81001; 82962; 83690; 83735; 83880; 84100; 85027; 85610; 85730; 86140; 87070; 87075; 87205; 93005; 94640; 96361; 96365; 96375; 96376; 99285-25; A9270-GY; J0171; J0287; J0330; J0713; J1100; J1170; J1644; J1650; J1815; J1815-GY; J2060; J2405; J2543; J2704; J2710; J2795; J3010; J3430; J3475; J3490; J7030; J7050; J7120; J7121; J7620-GY; Q9967

== ENCOUNTER 2021-09-30 13:06 | Emergency (ER) | payer BC ==
[2021-09-30] MEDS ORDERED: Sodium Chloride 0.9% 10 ML Syringe FLUSH PRN (13:58)
[2021-09-30] MEDS ORDERED: Sodium Chloride 0.9% 1,000 ML IV ONE (14:26)
[2021-09-30 16:11] LABS: CORONAVIRUS COVID-19 NAA NEGATIVE (NEGATIVE)
== END 2021-09-30 17:16 | disposition home or self-care (01) ==
LOC: JP.ED 13:06
DX: N17.9 Acute kidney failure, unspecified (principal); E86.0 Dehydration; E11.9 Type 2 diabetes mellitus without complications; R19.7 Diarrhea, unspecified; J45.909 Unspecified asthma, uncomplicated; I10 Essential (primary) hypertension; Z86.73 Personal history of transient ischemic attack (TIA), and cerebral infarction without residual deficits; Z79.01 Long term (current) use of anticoagulants; Z79.899 Other long term (current) drug therapy; Z20.822 Contact with and (suspected) exposure to COVID-19; Z79.4 Long term (current) use of insulin
CPT/HCPCS: 0241U; 36415; 74176; 80048; 80076; 83605; 85025; 86140; 93005; 99285; J7030

== ENCOUNTER 2022-12-14 12:16 | Emergency (ER) | payer MEDICARE, BC | END 2022-12-14 14:11 | disposition home or self-care (01) | LOC: JP.ED 12:16 | DX: R20.2 Paresthesia of skin (principal); I10 Essential (primary) hypertension; E10.9 Type 1 diabetes mellitus without complications; Z86.73 Personal history of transient ischemic attack (TIA), and cerebral infarction without residual deficits; Z79.01 Long term (current) use of anticoagulants | CPT/HCPCS: 36415; 70450; 85610; 99283; 99284 ==